=== PATIENT | female | born 1945 | race Caucasian/White ===

== ENCOUNTER 2017-05-20 20:20 | Inpatient (IN) | payer MEDICARE ==
[2017-05-20] MEDS ORDERED: Ondansetron HCl/PF 4 MG/2 ML Vial ONE (23:53)
[2017-05-20] MEDS ORDERED: HYDROcodone/Acetaminophen 10/325 mg Tablet PO PRN (23:54)
[2017-05-20] MEDS ORDERED: HYDROcodone/Acetaminophen 5/325 mg Tablet PO PRN (23:54)
[2017-05-20] MEDS ORDERED: Ondansetron HCl/PF 4 MG/2 ML Vial IVP PRN (23:54)
[2017-05-21] MEDS: Sodium Chloride 0.9% 1,000 ML IV SCH ×3 (01:12→19:14)
[2017-05-21] MEDS: Acetaminophen 325 MG TAB PO PRN ×2 (01:15→05:45)
--- NOTE | 2017-05-21 01:37 | HP ---
CHIEF COMPLAINT: Left flank pain. HISTORY OF PRESENT ILLNESS: The patient is a 71-year-old female, who was transferred from [facility] due to a 2.5 cm left ureteral stone. The patient is still in fairly good amount of pain on her le ft flank. She has had prior kidney stones before. Otherwise, her home situation is such that she is living alone and this is also a mitigating factor in admitting her tonight along with her pain contr ol. The patient does have some nausea, however, no vomiting. No fevers or chills. PAST MEDICAL HISTORY: Significant for hypertension, hypothyroidism, deafness, asthma. PAST SURGICAL HISTORY: Significant for prior hernia repair, cholecystectomy, and tonsillectomy. SOCIAL HISTORY: Negative for tobacco or alcohol use. REVIEW OF SYSTEMS: Please see HPI. Rest of 14-point review of systems is negative. HOME MEDICATIONS: The patient is currently on lisinopril, Flonase, vitamin D3, citalopram, Synthroid , Wellbutrin, Nexium, amlodipine, Symbicort, and lamotrigine. LABORATORY AND X-RAY DATA: The patient is noted to have a 2.5 cm kidney stone on the left side. Lab oratories are not available as they were done at [place] currently, rest are pending. PHYSICAL EXAMINATION: VITAL SIGNS: Blood pressure 100/64, pulse 104, respirations 20. The patient's temperature is 97.8. The patient is saturating 95% on room air. GENERAL: The patient is awake, alert, oriented x3, in no acute distress. HEENT: Pupils equal, round, and reactive to light and accommodation. Extraocular muscles intact. T Ms are clear. No erythema in throat. NECK: No JVD. No lymphadenopathy. HEART: Regular rate and rhythm. LUNGS: Clear to auscultation bilaterally. ABDOMEN: Positive bowel sounds. Soft, nontender. The patient does have left flank pain upon palpat ion. EXTREMITIES: No clubbing, cyanosis, or edema. NEUROLOGIC: Cranial nerves II-XII are grossly intact. She is very hard of hearing. PSYCHIATRIC: The patient has noted depression; however, she is cooperative and answering questions a ppropriately. ASSESSMENT AND PLAN: 1. Left kidney stone. Continue IV fluid rehydration. Continue on pain management. Await for CBC, plus or minus on antibiotics. Urology has been consulted and will see in the morning. 2. Hypertension. Continue as tolerated. For now, we will hold due to a slightly low blood pressure , which may be a factor from her pain management. 3. Hypothyroidism. Continue Synthroid. 4. Depression. Continue Wellbutrin. 5. Asthma, stable. Continue with outpatient regimen. 6. Code status: FULL CODE.
[2017-05-21 03:05] VITALS: BMI 18.3
[2017-05-21 05:21] LABS: #Lymphocytes 1.5 thou/uL (1.20-3.40); #Monocytes 1.7 thou/uL (0.11-0.59); #Neutrophils 14.3 thou/uL (1.40-6.50); %Basophils 0.2 % (0.0-1.0); %Eosinophils 0.3 % (0.0-10.0); %Lymphocytes 8.3 % (21.0-51.0); %Monocytes 9.9 % (0.0-10.0); %Neutrophils 81.4 % (42.0-75.0); Hemoglobin 14.8 g/dL (12.0-16.0); Mean Corpuscular HGB CONC 32.8 g/dL (32.0-36.0); Mean Corpuscular Hemoglobin 31.8 pg (27.0-31.0); Mean Platelet Volume 8.3 fL (7.4-10.4); Platelet Count 257 thou/uL (130-400); RBC Distribution Width 12.2 % (11.5-14.5); Red Blood Cell (RBC) Count 4.64 mill/uL (4.20-5.40); White Blood Cell (WBC) Count 17.5 thou/uL (4.8-10.8)
[2017-05-21] MEDS: Levothyroxine Sodium 125 MCG TAB PO SCH (05:35)
[2017-05-21 05:42] LABS: Anion Gap 14 mmol/L (10-20); BUN (Urea Nitrogen) 25 mg/dL (9.8-20.1); Calc. Creatinine Clearance 31 mL/min (70-130); Carbon Dioxide 26 mmol/L (23-31); Chloride 105 mmol/L (98-107); Estimated GFR-MDRD 35; Glucose 96 mg/dL (83-110); Potassium 4.4 mmol/L (3.5-5.1); Sodium 141 mmol/L (136-145)
[2017-05-21] MEDS: Mometasone/Formoterol 120 PUFF INHALER INH SCH ×2 (06:44→19:45)
[2017-05-21] MEDS ORDERED: Ondansetron ODT 4 MG TAB PO PRN (07:48)
[2017-05-21] MEDS ORDERED: Senokot 8.6 MG TAB PO PRN (07:48)
[2017-05-21] MEDS ORDERED: Diabetic Tussin 200 MG/10 ML UDCUP PO PRN (07:48)
[2017-05-21] MEDS ORDERED: Chloraseptic Spray 180 ml Bottle PO PRN (07:48)
[2017-05-21] MEDS ORDERED: Milk Of Magnesia 30 ML UDCUP PO PRN (07:48)
[2017-05-21] MEDS ORDERED: Sodium Chloride 0.65% Nasal 44 ML BOT EA NARE PRN (07:48)
[2017-05-21] MEDS ORDERED: Loperamide HCl 2 MG CAP PO PRN (07:48)
[2017-05-21] MEDS ORDERED: Mag-Al 1200 mg/1200 mg/30 ML UDCUP PO PRN (07:48)
[2017-05-21] MEDS ORDERED: Eucerin (Mineral Oil/Petrolatum,White) 30 gm Jar TOP PRN (07:48)
[2017-05-21] MEDS ORDERED: Artificial Tear Sol 15 ML BOT EA EYE PRN (07:48)
[2017-05-21] MEDS ORDERED: Loratadine 10 MG TAB PO PRN (07:48)
[2017-05-21] MEDS ORDERED: Temazepam 15 MG CAP PO PRN (07:48)
[2017-05-21] MEDS ORDERED: hydrALAZINE 20 MG/ML VIAL SLOW IVP PRN (07:48)
[2017-05-21] MEDS ORDERED: cefTRIAXone\\ROCEPHIN 1 GM in Sodium Chloride 0.9% 100 ML IVPB SCH (08:00)
[2017-05-21] MEDS: Enoxaparin Sodium 30 MG/0.3 ML SYRINGE SC SCH (08:24)
[2017-05-21] MEDS: Famotidine 20 MG TAB PO SCH (08:24)
[2017-05-21] MEDS: Bupropion 150 MG SR TAB PO SCH (08:24)
[2017-05-21] MEDS ORDERED: Famotidine/PF 20 mg/2ml Vial SLOW IVP SCH (09:00)
[2017-05-21] MEDS ORDERED: Morphine 5 MG/ML SYRINGE SLOW IVP PRN (09:32)
[2017-05-21 09:42] LABS: #Basophils 0.1 thou/uL (0.0-0.2); #Eosinphils 0.1 thou/uL (0.0-0.7); #Monocytes 1.1 thou/uL (0.11-0.59); #Neutrophils 11.7 thou/uL (1.40-6.50); %Basophils 0.4 % (0.0-1.0); %Eosinophils 0.7 % (0.0-10.0); %Lymphocytes 18.6 % (21.0-51.0); %Monocytes 6.7 % (0.0-10.0); %Neutrophils 73.6 % (42.0-75.0); Hemoglobin 15.5 g/dL (12.0-16.0); Mean Corpuscular HGB CONC 32.2 g/dL (32.0-36.0); Mean Corpuscular Hemoglobin 31.3 pg (27.0-31.0); Mean Corpuscular Volume 97.3 fl (81.0-99.0); Mean Platelet Volume 8.2 fL (7.4-10.4); Platelet Count 273 thou/uL (130-400); RBC Distribution Width 12.3 % (11.5-14.5); Red Blood Cell (RBC) Count 4.96 mill/uL (4.20-5.40); White Blood Cell (WBC) Count 15.9 thou/uL (4.8-10.8)
[2017-05-21 09:53] LABS: Anion Gap 13 mmol/L (10-20); BUN (Urea Nitrogen) 28 mg/dL (9.8-20.1); Calc. Creatinine Clearance 31 mL/min (70-130); Calcium 8.9 mg/dL (7.8-10.44); Carbon Dioxide 27 mmol/L (23-31); Chloride 105 mmol/L (98-107); Estimated GFR-MDRD 36; Glucose 118 mg/dL (83-110); Potassium 3.7 mmol/L (3.5-5.1); Sodium 141 mmol/L (136-145)
[2017-05-21] MEDS ORDERED: cefTRIAXone\\ROCEPHIN 1 GM, Syringe 0.4 ML in Sterile Water 9.6 ML SLOW IVP SCH (10:00)
--- NOTE | 2017-05-21 12:28 | PDOC.PN ---
- Subjective Encounter Start Date: 05/21/17 Encounter Start Time: 07:50 -: old records requested/rev pt has left flank pain, no fever, Patient seen and examined. No overnight events - Objective Resuscitation Status: Resuscitation Status FULL:Full Resuscitation MAR Reviewed: Yes Vital Signs & Weight: Vital Signs (12 hours) Temp Pulse Resp BP Pulse Ox 05/21/17 11:26 98.3 F 83 18 107/49 L 95 05/21/17 07:52 97.5 F L 82 16 107/58 L 97 05/21/17 07:40 98.3 F 78 12 05/21/17 06:44 78 12 05/21/17 04:21 97.5 F L 79 22 H 117/58 L 98 05/21/17 03:00 97.9 F 103 H 20 Weight Weight 124 lb 8 oz I&O: 05/20/17 05/21/17 05/22/17 06:59 06:59 06:59 Intake Total 1402 901 Balance 1402 901 Result Diagrams: 05/21/17 09:22 05/21/17 09:23 Radiology Reviewed by me: Yes (CT abdomen) EKG Reviewed by me: Yes (NSR) Phys Exam - Physical Examination Constitutional: NAD HEENT: PERRLA, moist MMs, sclera anicteric Neck: no JVD, supple Respiratory: no wheezing, no rales, no rhonchi Cardiovascular: RRR, no significant murmur, no rub Gastrointestinal: soft, non-tender, no distention, positive bowel sounds left flank tenderness Musculoskeletal: no edema, pulses present Neurological: non-focal, normal sensation, moves all 4 limbs Psychiatric: normal affect, A&O x 3 Skin: no rash, normal turgor Dx/Plan (1) Hydronephrosis, left Code(s): N13.30 - UNSPECIFIED HYDRONEPHROSIS Status: Acute (2) Left flank pain Code(s): R10.9 - UNSPECIFIED ABDOMINAL PAIN Status: Acute (3) UTI (urinary tract infection) Status: Acute (4) Anxiety and depression Code(s): F41.9 - ANXIETY DISORDER, UNSPECIFIED; F32.9 - MAJOR DEPRESSIVE DISORDER, SINGLE EPISODE, UNSPECIFIED Status: Chronic (5) COPD (chronic obstructive pulmonary disease) Status: Chronic Qualifiers: (6) Deafness Code(s): H91.90 - UNSPECIFIED HEARING LOSS, UNSPECIFIED EAR Status: Chronic (7) GERD (gastroesophageal reflux disease) Code(s): K21.9 - GASTRO-ESOPHAGEAL REFLUX DISEASE WITHOUT ESOPHAGITIS Status: Chronic (8) HTN (hypertension) Code(s): I10 - ESSENTIAL (PRIMARY) HYPERTENSION Status: Chronic Qualifiers: (9) Hypothyroidism Code(s): E03.9 - HYPOTHYROIDISM, UNSPECIFIED Status: Chronic Qualifiers: (10) Obesity (BMI 30.0-34.9) Code(s): E66.9 - OBESITY, UNSPECIFIED Status: Chronic - Plan cont current plan of care, continue antibiotics * wbc improving * will add rocephin and levaquin for suspected UTI * urology consulted * pain control * start selected home medication * medication reviewed as below * symptomatic treatment. Review of Systems - Review of Systems Constitutional: negative: fever, chills, sweats, weakness, malaise, other ENT: negative: Ear Pain, Ear Discharge, Nose Pain, Nose Discharge, Nose Congestion, Mouth Pain, Mouth Swelling, Throat Pain, Throat Swelling, Other Respiratory: negative: Cough, Dry, Shortness of Breath, Hemoptysis, SOB with Excertion, Pleuritic Pain, Sputum, Wheezing Cardiovascular: negative: chest pain, palpitations, orthopnea, paroxysmal nocturnal dyspnea, edema, light headedness, other Gastrointestinal: Abdominal Pain. negative: Nausea, Vomiting, Diarrhea, Constipation, Melena, Hematochezia, Other Genitourinary: Dysuria. negative: Frequency, Incontinence, Hematuria, Retention , Other Musculoskeletal: negative: Neck Pain, Shoulder Pain, Arm Pain, Back Pain, Hand Pain, Leg Pain, Foot Pain, Other Skin: negative: Rash, Lesions, David, Bruising, Other - Medications/Allergies Allergies/Adverse Reactions: Allergies Allergy/AdvReac Type Severity Reaction Status Date / Time iodine Allergy Verified 08/04/16 16:53 Medications: Current Medications Acetaminophen (Tylenol) 650 mg PO Q4H PRN PRN Reason: Headache/Fever or Pain Last Admin: 05/21/17 05:45 Dose: 650 mg Hydrocodone Bitart/Acetaminophen ([place] 10/325) 1 tab PO Q4H PRN PRN Reason: Severe Pain (7-10) Hydrocodone Bitart/Acetaminophen ([place] 5/325) 1 tab PO Q4H PRN PRN Reason: Moderate Pain (4-6) Al Hydroxide/Mg Hydroxide (Maalox) 15 ml PO Q4H PRN PRN Reason: Heartburn or Indigestion Artificial Tears (Tears Renewed 15ml Bottle) 0 drop EA EYE PRN PRN PRN Reason: Dry Eyes Bupropion HCl (Wellbutrin Sr) 150 mg PO DAILY [facility] Last Admin: 05/21/17 08:24 Dose: 150 mg Citalopram Hydrobromide (Celexa) 40 mg PO HS [facility] Enoxaparin Sodium (Lovenox) 30 mg SC 0900 [facility] Last Admin: 05/21/17 08:24 Dose: 30 mg Famotidine (Pepcid) 20 mg PO DAILY [facility] Last Admin: 05/21/17 08:24 Dose: 20 mg Guaifenesin (Robitussin Sf) 200 mg PO Q4H PRN PRN Reason: Cough Hydralazine HCl (Apresoline) 10 mg SLOW IVP Q4H PRN PRN Reason: Systolic BP > 180 Sodium Chloride (Normal Saline 0.9%) 1,000 mls @ 125 mls/hr IV .Q8H [facility] Last Admin: 05/21/17 10:14 Dose: 1,000 mls Levofloxacin 500 mg/ Device 100 mls @ 100 mls/hr IVPB Q24HR@0900 [facility] Last Admin: 05/21/17 08:28 Dose: 100 mls Ceftriaxone Sodium 1 gm/ (Syringe 0.4 ml/ Sterile Water) 10 mls @ 120 mls/hr SLOW IVP Q24HR@1000 [facility] Last Admin: 05/21/17 10:15 Dose: 10 mls Levothyroxine Sodium (Synthroid) 125 mcg PO 0600 [facility] Last Admin: 05/21/17 05:35 Dose: 125 mcg Loperamide HCl (Imodium) 2 mg PO PRN PRN PRN Reason: Diarrhea/Loose Stools Last Admin: 05/21/17 10:58 Dose: 2 mg Loratadine (Claritin) 10 mg PO DAILYPRN PRN PRN Reason: Sinus Symptoms Magnesium Hydroxide (Milk Of Magnesium) 30 ml PO DAILYPRN PRN PRN Reason: Constipation Mineral Oil/White Petrolatum (Eucerin Cream) 0 gm TOP BIDPRN PRN PRN Reason: Dry Skin Mometasone Furoate/Formoterol Fumar (Dulera 200 Mcg/5 Mcg Inhaler) 2 puff INH BID-RT [facility] Last Admin: 05/21/17 06:44 Dose: 2 puff Morphine Sulfate (Morphine) 2 mg SLOW IVP Q4H PRN PRN Reason: Breakthrough Pain Last Admin: 05/21/17 10:09 Dose: 2 mg Ondansetron HCl (Zofran) 4 mg IVP Q6H PRN PRN Reason: Nausea/Vomiting Ondansetron HCl (Zofran Odt) 4 mg PO Q6H PRN PRN Reason: Nausea/Vomiting Phenol (Chloraseptic [place] 180 Ml Bot) 0 ml PO PRN PRN PRN Reason: Sore Throat Senna (Senokot) 2 tab PO HSPRN PRN PRN Reason: Constipation Sodium Chloride ([place] Nasal [place] 0.65%) 0 ml EA NARE QIDPRN PRN PRN Reason: Nasal Congestion Temazepam (Restoril) 15 mg PO HSPRN PRN PRN Reason: Insomnia
[2017-05-21] MEDS ORDERED: Lidocaine 1% PF 5 ML VIAL ONE (13:53)
[2017-05-21] MEDS ORDERED: Glycopyrrolate 0.2 MG/ML 5 ML SYRINGE ONE (13:53)
[2017-05-21] MEDS ORDERED: PHENYLEPHRINE-NS 100 MCG/ML 10 ML SYRINGE ONE (13:53)
[2017-05-21] MEDS ORDERED: Propofol 200 MG/20 ML VIAL ONE (13:53)
[2017-05-21] MEDS ORDERED: B & O ONE (15:05)
[2017-05-21] MEDS ORDERED: Iothalamate Meglumine 60% 50 ML VIAL FS ONE (15:05)
[2017-05-21] MEDS ORDERED: Fentanyl 100 MCG/2 ML VIAL ONE (16:01)
[2017-05-21] MEDS ORDERED: Promethazine HCl 25 MG/ML VIAL IM PRN (16:58)
[2017-05-21] MEDS ORDERED: Promethazine HCl 25 MG/ML VIAL SLOW IVP PRN (16:58)
[2017-05-21] MEDS ORDERED: Ondansetron HCl/PF 4 MG/2 ML Vial IVP PRN (16:58)
--- NOTE | 2017-05-21 17:00 | RAD ---
RETROGRADE IVP 05/21/17 COMPARISON: CT abdomen/pelvis 05/20/17. HISTORY: Left urinary collecting system calcification. FINDINGS/IMPRESSION: Multiple limited intraoperative fluoroscopic views of a retrograde IVP were submitted for interpretat ion. There is a calcification projecting over the region of the left renal pelvis. Contrast was admin istered which shows a 1.7 cm filling defect in the left renal pelvis. A double-J ureteral stent is ev entually placed and appears in good position. It appears that the filling defect is still present in this location. POS: MARISSA
[2017-05-21] MEDS ORDERED: Phenazopyridine HCl 97.5 MG TABLET ONE (17:20)
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
[2017-05-21] MEDS ORDERED: Cepastat Lozenges 1 LOZ PO PRN (19:28)
[2017-05-21] MEDS: Phenazopyridine HCl 97.5 MG TABLET PO SCH (21:06)
[2017-05-21] MEDS: Cefprozil 250 MG TAB PO SCH (21:06)
[2017-05-21] MEDS: Citalopram 20 MG TAB PO SCH (21:06)
--- NOTE | 2017-05-21 21:48 | OP ---
DATE OF HOSPITAL ADMISSION: 05/20/2017 DATE OF CONSULTATION REQUEST AND REPORT: 05/21/2017 DATE OF PROCEDURE: 05/21/2017 PREOPERATIVE DIAGNOSES: 1. Left renal calculus greater than 2.5 cm. 2. Left ureteropelvic junction obstruction secondary to calculus. 3. Elevated white count. POSTOPERATIVE DIAGNOSES: 1. Left renal calculus greater than 2.5 cm 2. Left ureteropelvic junction obstruction secondary to calculus. 3. Elevated white count. OPERATIVE PROCEDURES: 1. Left-sided stent placement with cystoscopy, 56392. 2. Left-sided retrograde pyelography, 29813. SURGEON: Alexis Shah M.D. BRIEF HISTORY AND INDICATION FOR PROCEDURE: Ms. Kathryn Benson is a pleasant 71-year-old white female with an approximately 2 year long history of a left-sided kidney stone, which has now pr ogressed to obstructing her left UPJ. Patient developed symptoms of impending sepsis and was admitte d overnight to the hospitalist service for management of multiple medical issues. Patient opted to p roceed to the operating room for cystourethroscopy and left-sided stent placement and did proceed wit h that today. TECHNICAL PROCEDURE: Patient was appropriately identified in the preoperative holding area, informed written consent was obtained. Patient was brought to the operative suite, placed in the supine posi tion on a cysto fluorographic table and general anesthesia was established using LMA airway. Patient was repositioned in the supine lithotomy position and prepped and draped in usual sterile fashion fo r cystoscopic assessment. Fluorographically, the patient was evaluated and patient was noted to have an approximately 2.5 cm left renal calculus located roughly in the location of the ureteropelvic felicita ction. This was not super dense in appearance, but did suggest the presence of a probable calcium co mponent to her stone. The patient underwent cystoscopic evaluation, we noted postmenopausal changes associated with the patient's urethra and some urethral atrophy. Patient's bladder was panendoscopic ally evaluated. There was no efflux observed from the left ureteric orifice. Right ureteric orifice effluxed relatively concentrated appearing urine. Bladder was otherwise free of tumor lesion or abn ormality. We accessed the left ureter using a 0.035 inch Glidewire and a 5 Danish Pollack catheter. We utilized this to advance the Pollack catheter in the patient's renal pelvis and aspirated fluid, which was sent for culture above the patient's obstructing stone. This urine grossly appeared clear consistent with the patient's generalized improvement with hydration and medical therapy today. Ines ent underwent retrograde evaluation, which demonstrated the collecting system, which looked as if it had been distended before. We placed a 4.5 Danish x 28 cm double-J ureteral stent in the patient's l eft collecting system above the level of the calculus and UPJ and achieved good coil. We removed the string from the stent and drained the patient's bladder at the end of the procedure. A 60 mg bellad onna and opioid suppository was applied per rectum at the close of the procedure for management of th e patient's potential bladder spasms postoperatively. ESTIMATED BLOOD LOSS: Less than 5 mL. RESUSCITATION FLUIDS: 200 mL of crystalloid. COMPLICATIONS: None. SPECIMENS: Urine for culture as noted.
[2017-05-22] MEDS: Sodium Chloride 0.9% 1,000 ML IV SCH ×3 (02:23→16:04)
[2017-05-22] MEDS: Levothyroxine Sodium 125 MCG TAB PO SCH (05:49)
[2017-05-22] MEDS: Mometasone/Formoterol 120 PUFF INHALER INH SCH ×2 (07:02→19:12)
[2017-05-22] MEDS: Cefprozil 250 MG TAB PO SCH ×2 (08:56→20:39)
[2017-05-22] MEDS: Enoxaparin Sodium 30 MG/0.3 ML SYRINGE SC SCH (08:56)
[2017-05-22] MEDS: Phenazopyridine HCl 97.5 MG TABLET PO SCH ×3 (08:56→20:38)
[2017-05-22] MEDS: Famotidine 20 MG TAB PO SCH (08:56)
[2017-05-22 08:58] LABS: #Basophils 0.1 thou/uL (0.0-0.2); #Eosinphils 0.2 thou/uL (0.0-0.7); #Lymphocytes 2.1 thou/uL (1.20-3.40); #Monocytes 0.5 thou/uL (0.11-0.59); %Basophils 0.8 % (0.0-1.0); %Eosinophils 1.9 % (0.0-10.0); %Lymphocytes 23.5 % (21.0-51.0); %Monocytes 6.1 % (0.0-10.0); %Neutrophils 67.8 % (42.0-75.0); Hemoglobin 14.4 g/dL (12.0-16.0); Mean Corpuscular HGB CONC 33.2 g/dL (32.0-36.0); Mean Corpuscular Hemoglobin 31.8 pg (27.0-31.0); Mean Corpuscular Volume 95.8 fl (81.0-99.0); Mean Platelet Volume 8.2 fL (7.4-10.4); Platelet Count 209 thou/uL (130-400); RBC Distribution Width 11.9 % (11.5-14.5); Red Blood Cell (RBC) Count 4.53 mill/uL (4.20-5.40); White Blood Cell (WBC) Count 8.9 thou/uL (4.8-10.8)
[2017-05-22 09:36] LABS: ALT (SGPT) 17 U/L (8-55); AST (SGOT) 25 U/L (5-34); Albumin 3.6 g/dL (3.4-4.8); Alkaline Phosphatase 72 U/L (40-150); Anion Gap 10 mmol/L (10-20); BUN (Urea Nitrogen) 13 mg/dL (9.8-20.1); Bilirubin, Total 0.4 mg/dL (0.2-1.2); Calc. Creatinine Clearance 58 mL/min (70-130); Calcium 9.1 mg/dL (7.8-10.44); Carbon Dioxide 26 mmol/L (23-31); Chloride 110 mmol/L (98-107); Estimated GFR-MDRD 73; Globulin 2.5 g/dL (2.4-3.5); Glucose 121 mg/dL (83-110); Protein, Total 6.1 g/dL (6.0-8.3); Sodium 142 mmol/L (136-145)
[2017-05-22] MEDS: Bupropion 150 MG SR TAB PO SCH (09:47)
[2017-05-22] MEDS: TROSPIUM 20 MG TABLET PO SCH ×2 (09:48→20:39)
[2017-05-22] MEDS ORDERED: Ketorolac Tromethamine 30 MG/ML VIAL IVP PRN (10:57)
--- NOTE | 2017-05-22 10:57 | PDOC.PN ---
- Subjective Encounter Start Date: 05/22/17 Encounter Start Time: 08:00 today she is not feeling well, has mild flank pain, has not walked and feels weak, she is not confident to go home today and wanted to stay one more day - Objective MAR Reviewed: Yes Vital Signs & Weight: Vital Signs (12 hours) Temp Pulse Resp BP Pulse Ox 05/22/17 08:00 97.7 F 86 18 173/80 H 97 05/22/17 04:00 98.5 F 92 16 158/76 H 95 05/22/17 00:00 98.4 F 86 18 167/84 H 95 I&O: 05/21/17 05/22/17 05/23/17 06:59 06:59 06:59 Intake Total 1675 Balance 1675 Result Diagrams: 05/22/17 08:39 05/22/17 08:39 Phys Exam - Physical Examination Constitutional: NAD HEENT: PERRLA, moist MMs, sclera anicteric Neck: no JVD, supple Respiratory: no wheezing, no rales, no rhonchi Cardiovascular: RRR, no significant murmur, no rub Gastrointestinal: soft, no distention, positive bowel sounds left flank tenderness Musculoskeletal: no edema, pulses present Neurological: non-focal, normal sensation, moves all 4 limbs Psychiatric: normal affect, A&O x 3 Skin: no rash, normal turgor Dx/Plan (1) Hydronephrosis, left Code(s): N13.30 - UNSPECIFIED HYDRONEPHROSIS Status: Acute Comment: due to UPJ stone (2) Left flank pain Code(s): R10.9 - UNSPECIFIED ABDOMINAL PAIN Status: Acute (3) UTI (urinary tract infection) Status: Acute (4) Anxiety and depression Code(s): F41.9 - ANXIETY DISORDER, UNSPECIFIED; F32.9 - MAJOR DEPRESSIVE DISORDER, SINGLE EPISODE, UNSPECIFIED Status: Chronic (5) COPD (chronic obstructive pulmonary disease) Status: Chronic Qualifiers: (6) Deafness Code(s): H91.90 - UNSPECIFIED HEARING LOSS, UNSPECIFIED EAR Status: Chronic (7) GERD (gastroesophageal reflux disease) Code(s): K21.9 - GASTRO-ESOPHAGEAL REFLUX DISEASE WITHOUT ESOPHAGITIS Status: Chronic (8) HTN (hypertension) Code(s): I10 - ESSENTIAL (PRIMARY) HYPERTENSION Status: Chronic Qualifiers: (9) Hypothyroidism Code(s): E03.9 - HYPOTHYROIDISM, UNSPECIFIED Status: Chronic Qualifiers: (10) Obesity (BMI 30.0-34.9) Code(s): E66.9 - OBESITY, UNSPECIFIED Status: Chronic - Plan cont current plan of care, continue antibiotics * continue oral cefzil * follow culture * wbc and creatinine improved to normal * toradol for pain * start walking program * medication reviewed as below * symptomatic treatment. Review of Systems - Review of Systems Constitutional: weakness. negative: fever, chills, sweats, malaise, other Respiratory: negative: Cough, Dry, Shortness of Breath, Hemoptysis, SOB with Excertion, Pleuritic Pain, Sputum, Wheezing Cardiovascular: negative: chest pain, palpitations, orthopnea, paroxysmal nocturnal dyspnea, edema, light headedness, other Gastrointestinal: Other (left flank pain). negative: Nausea, Vomiting, Abdominal Pain, Diarrhea, Constipation, Melena, Hematochezia Genitourinary: negative: Dysuria, Frequency, Incontinence, Hematuria, Retention , Other Musculoskeletal: negative: Neck Pain, Shoulder Pain, Arm Pain, Back Pain, Hand Pain, Leg Pain, Foot Pain, Other Skin: negative: Rash, Lesions, Davdi, Bruising, Other - Medications/Allergies Allergies/Adverse Reactions: Allergies Allergy/AdvReac Type Severity Reaction Status Date / Time iodine Allergy Verified 08/04/16 16:53 Medications: Current Medications Acetaminophen (Tylenol) 650 mg PO Q4H PRN PRN Reason: Headache/Fever or Pain Last Admin: 05/21/17 05:45 Dose: 650 mg Al Hydroxide/Mg Hydroxide (Maalox) 15 ml PO Q4H PRN PRN Reason: Heartburn or Indigestion Last Admin: 05/22/17 06:57 Dose: 15 ml Artificial Tears (Tears Renewed 15ml Bottle) 0 drop EA EYE PRN PRN PRN Reason: Dry Eyes Bupropion HCl (Wellbutrin Sr) 150 mg PO DAILY [facility] Last Admin: 05/22/17 09:47 Dose: 150 mg Cefprozil (Cefzil) 500 mg PO BID [facility] Last Admin: 05/22/17 08:56 Dose: 500 mg Citalopram Hydrobromide (Celexa) 40 mg PO HS [facility] Last Admin: 05/21/17 21:06 Dose: 40 mg Enoxaparin Sodium (Lovenox) 30 mg SC 0900 [facility] Last Admin: 05/22/17 08:56 Dose: 30 mg Famotidine (Pepcid) 20 mg PO DAILY [facility] Last Admin: 05/22/17 08:56 Dose: 20 mg Hydralazine HCl (Apresoline) 10 mg SLOW IVP Q4H PRN PRN Reason: Systolic BP > 180 Sodium Chloride (Normal Saline 0.9%) 1,000 mls @ 125 mls/hr IV .Q8H [facility] Last Admin: 05/22/17 08:55 Dose: Not Given Levothyroxine Sodium (Synthroid) 125 mcg PO 0600 [facility] Last Admin: 05/22/17 05:49 Dose: 125 mcg Loratadine (Claritin) 10 mg PO DAILYPRN PRN PRN Reason: Sinus Symptoms Magnesium Hydroxide (Milk Of Magnesium) 30 ml PO DAILYPRN PRN PRN Reason: Constipation Mineral Oil/White Petrolatum (Eucerin Cream) 0 gm TOP BIDPRN PRN PRN Reason: Dry Skin Mometasone Furoate/Formoterol Fumar (Dulera 200 Mcg/5 Mcg Inhaler) 2 puff INH BID-RT [facility] Last Admin: 05/22/17 07:02 Dose: Not Given Morphine Sulfate (Morphine) 2 mg SLOW IVP Q4H PRN PRN Reason: Breakthrough Pain Last Admin: 05/21/17 10:09 Dose: 2 mg Phenazopyridine HCl (Azo Standard) 97.5 mg PO TID [facility] Last Admin: 05/22/17 08:56 Dose: 97.5 mg Phenol (Chloraseptic [place] 180 Ml Bot) 0 ml PO PRN PRN PRN Reason: Sore Throat Senna (Senokot) 2 tab PO HSPRN PRN PRN Reason: Constipation Sodium Chloride ([place] Nasal [place] 0.65%) 0 ml EA NARE QIDPRN PRN PRN Reason: Nasal Congestion Temazepam (Restoril) 15 mg PO HSPRN PRN PRN Reason: Insomnia Throat Lozenges (Cepastat Lozenges) 1 igor PO Q4H PRN PRN Reason: THROAT PAIN Last Admin: 05/21/17 19:41 Dose: 1 igor Trospium (Trospium) 20 mg PO BID [facility] Last Admin: 05/22/17 09:48 Dose: 20 mg
[2017-05-22] MEDS: Citalopram 20 MG TAB PO SCH (20:39)
--- NOTE | 2017-05-22 23:46 | PRG ---
DATE OF HOSPITAL ADMISSION: 05/21/2017 DATE OF INTERVAL PROGRESS NOTE: 05/22/2017 REASON FOR HOSPITALIZATION: Left-sided obstructing ureteral calculus. BRIEF HISTORY: Ms. Kathryn Benson is a 71-year-old white female, who presented to the emerg ency department on transfer from the [facility] with left-sided flank pain, wh ich had been present for about 2 years. She was found on CT scanning to have a 2.5 cm left ureterope lvic junction calculus. The patient underwent initial ER evaluation and was admitted to the hospital . We took her to the operating room on 05/21/2017, and she underwent cystoscopy with left-sided sten ting. The patient has done well overnight, but has some ileus-related symptoms secondary to narcotic use and her operation. The patient is reporting some bloating sensation. She reports she is having flatus and bowel movements today, however. PHYSICAL EXAMINATION: VITAL SIGNS: Temperature is 98.4, pulse is 105, respirations 12, O2 saturation is 90%, blood pressur e is 196/73. GENERAL: This is a pleasant, awake, alert, white female, in no distress. HEENT: Extraocular movements are intact. Sclerae are anicteric. Oropharynx is clear. The patient has profound bilateral deafness and can hear if the service station console operator's voice is loud enough. NECK: Supple. LUNGS: Clear to auscultation bilaterally. CARDIOVASCULAR: Regular rate and rhythm. She is borderline tachycardic on exam. ABDOMEN: Distended. Percussion of the abdomen reveals increased resonance in all 4 quadrants. She has moderately hyperactive bowel sounds, however. PELVIC EXAMINATION: Not repeated. BACK EXAMINATION: Costovertebral angle tenderness on the left is no longer present. NEUROLOGIC: Gait was not assessed. Patient was evaluated supine in bed. Does have ability to move all 4 extremities without difficulty. LABORATORY STUDIES: The patient's white count has decreased from 17,500 at hospital admission to 8,9 00 today. Her previous neutrophilia at 81.4% has decreased to 67.8%. The patient's ANC is decreased from 14,300-6000 indicating generalized improvement on her current medication regimen. A urine cult ure from renal pelvis was obtained on 05/21/2017 shows no growth at 12 hours. There were no white ce lls or organisms observed on the microscopic assessment of the recovered urine from the patient's lef t renal pelvis. ASSESSMENT: 1. Left-sided ureteropelvic junction calculus. The patient will probably need to undergo ESWL after cultures are returned. An indwelling stent is in place to manage this upper tract obstruction for n ow. 2. Kidney stone characteristics. The patient would merit a KUB imaging study prior to discharge. FOLLOWUP PLAN: The patient should follow up with my office at the [facility] within 1-2 weeks to schedule outpatient extracorporeal shockwave lithotripsy. Over 35 minutes of consultation and assessment time exclusive of any procedures performed today were provided on this patient on subsequent rounds.
[2017-05-23] MEDS: Sodium Chloride 0.9% 1,000 ML IV SCH ×2 (01:21→08:11)
[2017-05-23] MEDS: Levothyroxine Sodium 125 MCG TAB PO SCH (05:19)
[2017-05-23] MEDS: Mometasone/Formoterol 120 PUFF INHALER INH SCH (08:05)
[2017-05-23] MEDS: TROSPIUM 20 MG TABLET PO SCH (09:12)
[2017-05-23] MEDS: Cefprozil 250 MG TAB PO SCH (09:12)
[2017-05-23] MEDS: Famotidine 20 MG TAB PO SCH (09:12)
[2017-05-23] MEDS: Phenazopyridine HCl 97.5 MG TABLET PO SCH (09:12)
[2017-05-23] MEDS: Bupropion 150 MG SR TAB PO SCH (09:12)
[2017-05-23] MEDS: Enoxaparin Sodium 30 MG/0.3 ML SYRINGE SC SCH (09:13)
--- NOTE | 2017-05-23 11:29 | DIS ---
PRIMARY CARE PHYSICIAN: Dr. Jose G Corcoran DATE OF ADMISSION: 05/21/2017 DATE OF DISCHARGE: 05/23/2017 DISCHARGE DISPOSITION: Home. PRIMARY DISCHARGE DIAGNOSES: 1. Left hydronephrosis. 2. Left flank pain. 3. Urinary tract infection, status post cystoscopy and stent placement. 4. Left-sided retrograde pyelography was performed. 5. Acute kidney failure, improved. SECONDARY DISCHARGE DIAGNOSES: Anxiety and depression, COPD, deafness, gastroesophageal reflux disea se, hypertension, hypothyroidism, obesity. PRIMARY PROCEDURE/OPERATION: Left-sided stent placement with cystoscopy, left-sided retrograde pyelo graphy. RADIOLOGICAL INVESTIGATION: Abdomen and pelvis CT scan showed left hydronephrosis, left urinary zakia ecting system calcification, left renal cyst, left renal pelvis and proximal ureteral calcification 2 .4 cm in dimension. Chest x-ray normal. SIGNIFICANT LABS: WBC 8.9, hemoglobin 14.4, platelet 209, sodium 142, potassium 4.0, BUN 13, creatin ine 0.78, calcium 9.1. Liver function tests normal. DISCHARGE MEDICATIONS: Tylenol #3 one to two tablets q.6 hourly p.r.n. for pain, Cefzil 500 mg p.o. twice daily for 10 days, Synthroid 125 mcg p.o. daily, lisinopril 10 mg p.o. daily. CONTRAINDICATIONS: None. CODE STATUS: FULL CODE. INPATIENT CONSULTANTS: Dr. Alexis Shah was consulted who did cystoscopy. ALLERGIES: IODINE. TEST RESULTS PENDING ON DISCHARGE: None. DISCHARGE PLAN: Post hospital, the patient will follow up with Dr. Shah as instructed for extracorp oreal shockwave lithotripsy. The patient will make appointment with primary care physician. HOSPITAL COURSE: A 71-year-old female who was admitted by Dr. Chirag Escobar. Please see his H&P for f urther details. She was admitted for left flank pain. She was diagnosed with a left proximal ureter al calcification about 2.4 cm in size and subsequently she was experiencing left-sided hydronephrosis . Her urinalysis was suspected for urinary tract infection. She was given Rocephin and Levaquin and subsequently on discharge we changed to Cefzil. [facility]. This patient's pain significantly improved after a cystoscopy and stent placement by Dr. Shah, u rologist. Her leukocytosis improved. She remained afebrile. She was hydrated with IV fluid and her renal failure improved. The patient is currently clinically stable. Dr. Shah is okay with discharging her home and follow u p with him for extracorporeal shockwave lithotripsy. On the day of discharge, the patient is seen and examined at bedside. VITAL SIGNS: Currently, temperature 98.0, pulse 99, respiratory rate 16, saturation 91% on room air, weight 124 pounds, blood pressure 167/68. GENERAL: The patient is currently alert, oriented, no acute distress. HEENT: Head; normocephalic, atraumatic. Eyes; pupils round, reactive to light. Extraocular muscles intact. ENT: Oropharynx within normal limits. Moist mucous membranes. No oral lesions. No phary ngeal erythema, no exudates. NECK: Supple, no JVD, no thyromegaly, no carotid bruit. No jugular venous distention. LUNGS: Clear to auscultation without any rhonchi or rales. CARDIAC: S1, S2 regular without any murmur. ABDOMEN: Soft and benign without any tenderness. EXTREMITIES: No edema. NEUROLOGIC: Nonfocal examination. Overall, the patient is medically stable for discharge today. All new medication prescriptions sent to her pharmacy.
[2017-05-23 12:14] VITALS: BP 159/81; TEMP 98.3
--- NOTE | 2017-05-23 13:16 | RAD ---
SINGLE VIEW OF THE ABDOMEN: HISTORY: Ureteral stone. COMPARISON: CT abdomen and pelvis from 05/20/2017. FINDINGS: A single view of the abdomen shows a nonspecific, nonobstructive bowel gas pattern. There is a large calcification projecting over the medial aspect of the left renal shadow, measuring approximately 2. 1 cm in size. There is a left-sided ureteral stent, which appears in good position. IMPRESSION: 1. Interval placement of ureteral stent. 2. Left nephrolithiasis. POS: [facility]
== END 2017-05-23 12:47 | disposition home or self-care (01) | DRG 694 ==
LOC: ERS 20:20 → 2SW 22:34 → OBSVTOIN 05-21 13:10 → SURG B 05-21 15:33
PROVIDERS: ADMIT Hospitalist; ATTEND Hospitalist
PROC: 0T778DZ Dilation of Left Ureter with Intraluminal Device, Via Natural or Artificial Opening Endoscopic (ICD-10-PCS; principal; 2017-05-21)
PROC: BT1F0ZZ Fluoroscopy of Left Kidney, Ureter and Bladder using High Osmolar Contrast (ICD-10-PCS; 2017-05-21)
DX: N13.2 Hydronephrosis with renal and ureteral calculous obstruction (principal); N17.9 Acute kidney failure, unspecified; J44.9 Chronic obstructive pulmonary disease, unspecified; H90.5 Unspecified sensorineural hearing loss; N39.0 Urinary tract infection, site not specified; E03.9 Hypothyroidism, unspecified; I10 Essential (primary) hypertension; F32.9 Major depressive disorder, single episode, unspecified; F41.9 Anxiety disorder, unspecified; K21.9 Gastro-esophageal reflux disease without esophagitis; Z88.8 Allergy status to other drugs, medicaments and biological substances; Z79.899 Other long term (current) drug therapy
CPT/HCPCS: 36415; 74018; 74420; 80048; 80053; 85025; 87070; 87205; 94664; 94760; 96360; 96361; J2270; A4216; C1758; C1769; J0360; J0696; J1650; J1885; J1956; J2001; J2405; J2704; J3010; Q9961

== ENCOUNTER 2017-08-01 05:59 | Day surgery (SDC) | payer MEDICARE ==
[2017-07-29 10:51] VITALS: BMI 29.0
[2017-08-01] MEDS ORDERED: cefTRIAXone\\ROCEPHIN 2 GM in Sodium Chloride 0.9% 100 ML IVPB SCH (06:30)
[2017-08-01] MEDS ORDERED: Famotidine/PF 20 mg/2ml Vial ONE (06:43)
[2017-08-01] MEDS ORDERED: Fentanyl 100 MCG/2 ML VIAL ONE ×2 (06:43)
[2017-08-01 06:50] LABS: #Basophils 0.1 thou/uL (0.0-0.2); #Eosinphils 0.1 thou/uL (0.0-0.7); #Monocytes 0.7 thou/uL (0.11-0.59); #Neutrophils 5.8 thou/uL (1.40-6.50); %Eosinophils 1.2 % (0.0-10.0); %Lymphocytes 22.8 % (21.0-51.0); %Monocytes 7.8 % (0.0-10.0); %Neutrophils 67.2 % (42.0-75.0); Hemoglobin 14.1 g/dL (12.0-16.0); Mean Corpuscular HGB CONC 34.3 g/dL (32.0-36.0); Mean Corpuscular Hemoglobin 31.7 pg (27.0-31.0); Mean Corpuscular Volume 92.6 fl (81.0-99.0); Mean Platelet Volume 7.6 fL (7.4-10.4); Platelet Count 253 thou/uL (130-400); RBC Distribution Width 11.3 % (11.5-14.5); Red Blood Cell (RBC) Count 4.44 mill/uL (4.20-5.40); White Blood Cell (WBC) Count 8.6 thou/uL (4.8-10.8)
[2017-08-01 07:12] LABS: Anion Gap 11 mmol/L (10-20); BUN (Urea Nitrogen) 8 mg/dL (9.8-20.1); Calc. Creatinine Clearance 91 mL/min (70-130); Calcium 9.5 mg/dL (7.8-10.44); Carbon Dioxide 35 mmol/L (23-31); Chloride 101 mmol/L (98-107); Estimated GFR-MDRD 80; Glucose 118 mg/dL (83-110); Sodium 144 mmol/L (136-145)
--- NOTE | 2017-08-01 07:36 | RAD ---
CHEST PA AND LATERAL: HISTORY: A 71-year-old female for preoperative evaluation. COMPARISON: 08/01/15. FINDINGS: Heart size is within normal limits. The lungs are clear. No confluent pneumonia, overt edema, or pl eural effusion. Left shoulder glenohumeral arthropathy changes. IMPRESSION: No acute intrathoracic disease. POS: [facility]
[2017-08-01 07:53] LABS: Potassium 2.7 mmol/L (3.5-5.1)
[2017-08-01] MEDS ORDERED: Potassium Chloride 20 MEQ TAB PO SCH (08:15)
--- NOTE | 2017-08-07 08:36 | EKG ---
Test Reason : PREOP Blood Pressure : / mmHG Vent. Rate : 084 BPM Atrial Rate : 084 BPM P-R Int : 170 ms QRS Dur : 088 ms QT Int : 400 ms P-R-T Axes : 073 063 048 degrees QTc Int : 472 ms Sinus rhythm with occasional Premature ventricular complexes Minimal voltage criteria for LVH, may be normal variant Borderline ECG When compared with ECG of 01-SEP-2015 19:34, Premature ventricular complexes are now Present Confirmed by GOLD MCMAHAN MD ([id number]) on 08/07/2017 8:36:28 AM Referred By: Joni DESAI Confirmed By:GOLD MCMAHAN MD
== END 2017-08-01 09:00 | disposition home or self-care (01) ==
LOC: SDC 05:59 → SDC/OP 09:00 → SDC 09:00
PROVIDERS: ATTEND Urology
DX: N20.0 Calculus of kidney (principal); Z53.8 Procedure and treatment not carried out for other reasons; Z91.041 Radiographic dye allergy status
CPT/HCPCS: 36415; 71046; 80048; 85025; 93005; 93010; J0131; J0696; J3010; J7050; S0028

== ENCOUNTER 2017-08-12 06:43 | Day surgery (SDC) | payer MEDICARE ==
[2017-08-11 10:05] VITALS: BMI 28.8
[2017-08-12] MEDS ORDERED: cefTRIAXone\\ROCEPHIN 2 GM in Sodium Chloride 0.9% 100 ML IVPB SCH (07:30)
[2017-08-12 07:49] LABS: #Basophils 0.1 thou/uL (0.0-0.2); #Eosinphils 0.1 thou/uL (0.0-0.7); #Lymphocytes 2.9 thou/uL (1.20-3.40); #Monocytes 0.9 thou/uL (0.11-0.59); #Neutrophils 8.4 thou/uL (1.40-6.50); %Basophils 0.8 % (0.0-1.0); %Lymphocytes 23.6 % (21.0-51.0); %Monocytes 7.1 % (0.0-10.0); %Neutrophils 67.6 % (42.0-75.0); Hemoglobin 15.8 g/dL (12.0-16.0); Mean Corpuscular HGB CONC 32.7 g/dL (32.0-36.0); Mean Corpuscular Hemoglobin 31.9 pg (27.0-31.0); Mean Corpuscular Volume 97.5 fl (81.0-99.0); Mean Platelet Volume 7.9 fL (7.4-10.4); Platelet Count 280 thou/uL (130-400); RBC Distribution Width 11.7 % (11.5-14.5); Red Blood Cell (RBC) Count 4.96 mill/uL (4.20-5.40); White Blood Cell (WBC) Count 12.4 thou/uL (4.8-10.8)
[2017-08-12 08:04] LABS: Anion Gap 15 mmol/L (10-20); BUN (Urea Nitrogen) 12 mg/dL (9.8-20.1); Calc. Creatinine Clearance 97 mL/min (70-130); Calcium 9.4 mg/dL (7.8-10.44); Carbon Dioxide 23 mmol/L (23-31); Chloride 106 mmol/L (98-107); Estimated GFR-MDRD 87; Glucose 103 mg/dL (83-110); Potassium 3.4 mmol/L (3.5-5.1); Sodium 141 mmol/L (136-145)
[2017-08-12] MEDS ORDERED: Fentanyl 250 MCG/5 ML VIAL ONE (09:06)
[2017-08-12] MEDS ORDERED: Ondansetron HCl/PF 4 MG/2 ML Vial ONE ×2 (09:06→16:32)
[2017-08-12] MEDS ORDERED: Midazolam HCl 2 mg/2 ml Vial ONE (09:06)
--- NOTE | 2017-08-12 11:46 | DIS ---
DATE OF DISCHARGE: 08/12/2017 ADMISSION DIAGNOSES: 1. Left renal pelvis calculus 2 cm x 1.5 cm M 20.0. 2. Indwelling left-sided stent. 3. Past history of a systemic inflammatory response syndrome presentation with a previous stone obst ruction. PROCEDURE PERFORMED: 1. Left extracorporal shockwave lithotripsy, 13987. SURGEON: Alexis Shah M.D. BRIEF HISTORY AND INDICATION FOR HOSPITALIZATION AND PROCEDURE: Ms. Kathryn Benson is a 71-year-old w akila female with a history of a left renal pelvis UPJ obstruction stone which resulted in a SIRS type presentation and presentation to the [facility] on 05/21/2017. The patie nt underwent a preoperative evaluation on 06/23/2017 with a plan for left-sided extracorporal shock w ave lithotripsy. She was not able to show up for that procedure originally scheduled for 07/01/2017 and was later seen in clinic on 07/20/2017 and scheduled for an operative procedure on 08/01/2017. D ue to scheduling defects with the lithotripsy machine she ultimately had to be rescheduled for this d ate which is 08/12/2017. Briefly, the patient is severely deaf and has communication issues not like ly to answer a phone due to that. She says she has a radiopaque left renal calculus 2 cm x 1.5 cm in the left renal pelvis and has been treated with a long course of Cefzil antibiotics for pyelonephrit is episode. The patient completed her antibiotic medication therapy and presented today for left-subha ed extracorporeal shock wave lithotripsy. She does have an indwelling left-sided stent which was lef t in place. HOSPITAL COURSE: Please see the operative note for the patient's extracorporal shock wave lithotrips y. The patient still has a stent in place at the end of the procedure and will need followup imaging to verify clearance of stone particles before removal of the stent. As stone particles are radiopaq ue we plan on KUB imaging initially to validate appropriate clearance and then proceed to CT scanning if necessary. The patient will present to my office in 2-3 weeks for a followup evaluation and asse ssment of her imaging studies and decision making regarding further treatment of left-sided renal pel vis calculus. DISCHARGE INSTRUCTIONS: The patient will continue using her existing prescriptions for her kidney st one which include Tyrone 5/325 tablets 1-2 tablets every 4 hours as needed for pain, and doxycycline 1 tablet p.o. q.12h. for antibiotic prophylaxis of nonculturable organism. The patient was provided i n the office with a 3 week supply of VESIcare 5 mg p.o. daily, which she will also continue on and we did recommend over the counter Pyridium or AZO for stent discomfort. The patient can buy this at an [facility] pharmacy. Follow up will be in my office as outlined above in 2-3 weeks' time with a KUB films from [facility].
[2017-08-12] MEDS ORDERED: Fentanyl 100 MCG/2 ML VIAL ONE (11:50)
--- NOTE | 2017-08-12 12:09 | OP ---
DATE OF HOSPTIAL ADMISSION: 08/12/2017 DATE OF PROCEDURE: 08/12/2017 DATE OF DISCHARGE: 08/12/2017 PREOPERATIVE DIAGNOSES: 1. Left renal pelvis calculus N20.0. 2. Indwelling left ureteral stent. 3. Past history of systemic inflammatory response syndrome with previous stone obstruction. POST-PROCEDURAL DIAGNOSES: 1. Left renal pelvis calculus N20.0. 2. Indwelling left ureteral stent. 3. Past history of systemic inflammatory response syndrome with previous stone obstruction. OPERATIVE: Left extracorporeal shock wave lithotripsy, 98164. SURGEON: Alexis Shah M.D. CRYPTOLOGIC TECHNICIAN OPERATOR/ANALYST SURGEON: None. BRIEF HISTORY AND INDICATION FOR PROCEDURE: Ms. Kathryn Benson is a 71-year-old white female patient with a history of left renal pelvis UPJ stone. It was present at admission to the [facility] on 05/21/2017. She underwent cystoscopy and stent placement. She did have a SIRS-type pr esentation at that time and there were no culturable organisms isolated. The patient was felt to be appropriately covered on cephalosporin antibiotics and completed the Cefzil course for that. She pre sented to clinic for surgical planning on 07/20/2017, and we have planned the procedure on 08/01/2017 , but she could not have her procedure due to lack of availability of as well equipment and she prese nted today on 08/12/2017 for left extracorporeal shock wave lithotripsy. TECHNICAL PROCEDURE: The patient was appropriately identified in the preoperative holding area and w as transported to the operative suite after confirmation of her consent and was taken to the operatin g room and placed supine on Dornier lithotripter. Received general anesthesia by LMA airway, was pos itioned appropriately, and fluoroscopic guidance was utilized to identify the radiopaque. A 2 x 1.5 cm calculus lodged in the left renal pelvis. An indwelling stent could be seen adjacent to that. Th e patient's stone was then treated with lithotripsy receiving a total of 3000 shocks with a maximum p ower level of 5. Her maximum power level of 5 was achieved after ramping up from lower power levels over the first 500 shocks. The patient achieved good fragmentation with dispersion of the stone frag ments to a much larger diameter than 2 cm. The patient still has residual stone as visualized by the fluorographic assessment. She tolerated the procedure well with no untoward consequences. She was awakened and extubated and transported from the operative suite in good condition. COMPLICATIONS: None. ESTIMATED BLOOD LOSS: None. SPECIMENS RECOVERED: None. Patient transported to postoperative recovery area in good condition.
[2017-08-12] MEDS ORDERED: Dexamethasone 20 MG/5 ML VIAL ONE (16:32)
[2017-08-12] MEDS ORDERED: ePHEDrine/0.9% NaCl/PF SYRINGE 50 mg/10 ml ONE (16:32)
[2017-08-12] MEDS ORDERED: PROPOFOL 200 MG/20 ML VIAL ONE (16:32)
[2017-08-12] MEDS ORDERED: Lidocaine 1% PF 5 ML VIAL ONE (16:32)
== END 2017-08-12 15:22 | disposition home or self-care (01) ==
LOC: SDC 06:43
PROVIDERS: ATTEND Urology
PROC: 0TF4XZZ Fragmentation in Left Kidney Pelvis, External Approach (ICD-10-PCS; principal; 2017-08-12)
DX: N20.0 Calculus of kidney (principal); Z91.041 Radiographic dye allergy status
CPT/HCPCS: 36415; 80048; 85025; J0696; J1100; J2001; J2250; J2405; J2704; J3010; J7050

== ENCOUNTER 2018-11-07 11:24 | Emergency (ER) | payer MEDICARE | END 2018-11-07 14:38 | disposition home or self-care (01) | LOC: ERS 11:24 | DX: N13.2 Hydronephrosis with renal and ureteral calculous obstruction (principal); N39.0 Urinary tract infection, site not specified; E03.9 Hypothyroidism, unspecified; E66.9 Obesity, unspecified; J45.909 Unspecified asthma, uncomplicated; F32.9 Major depressive disorder, single episode, unspecified | CPT/HCPCS: 99284 ==

== ENCOUNTER 2019-11-07 18:32 | Inpatient (IN) | payer MEDICARE, OTHER ==
[2019-11-07 19:25] LABS: Hemoglobin 14.7 g/dL (12.0-16.0); Mean Corpuscular HGB CONC 30.8 g/dL (32.0-36.0); Mean Corpuscular Hemoglobin 28.3 pg (27.0-31.0); Mean Platelet Volume 9.3 fL (7.4-10.4); Platelet Count 390 thou/uL (130-400); RBC Distribution Width 16.4 % (11.5-14.5); Red Blood Cell (RBC) Count 5.18 mill/uL (4.20-5.40); White Blood Cell (WBC) Count 25.9 thou/uL (4.8-10.8)
[2019-11-07 19:51] LABS: ALT (SGPT) 8 U/L (8-55); AST (SGOT) 30 U/L (5-34); Albumin 3.5 g/dL (3.4-4.8); Alkaline Phosphatase 98 U/L (40-110); Anion Gap 19 mmol/L (10-20); BUN (Urea Nitrogen) 14 mg/dL (9.8-20.1); Band 5 % (5-11); Bilirubin, Total 0.5 mg/dL (0.2-1.2); Calc. Creatinine Clearance 0 mL/min (70-130); Calcium 9.3 mg/dL (7.8-10.44); Carbon Dioxide 16 mmol/L (23-31); Chloride 101 mmol/L (98-107); Estimated GFR-MDRD 60; Globulin 4.3 g/dL (2.4-3.5); Glucose 128 mg/dL (83-110); Hypochromia SLIGHT = 6-15 cells (100X) (0-5/hpf); Lymphocytes 5 % (21-51); MDiff Complete? YES; Monocytes 7 % (0-10); Neutrophil 80 % (42-75); Platelet Morphology Comment Appears Adequate; Polychromasia SLIGHT = 2-3 cells (100X) (0-2/hpf); Potassium 4.6 mmol/L (3.5-5.1); Protein, Total 7.8 g/dL (6.0-8.3); Reactive Lymphocytes 3 % (0-10); Sodium 131 mmol/L (136-145); Target Cells SLIGHT = 2-5 cells (100X) (0-1/hpf)
[2019-11-07] MEDS ORDERED: Cefepime 2 GM VIAL ONE (20:08)
[2019-11-07] MEDS ORDERED: Lorazepam 2 MG/ML VIAL ONE ×2 (20:10→22:10)
[2019-11-07] MEDS ORDERED: Vancomycin HCl 1.25 GM in Sodium Chloride 0.9% 250 ML 250 ML IVPB SCH (20:15)
[2019-11-07] MEDS ORDERED: diphenhydrAMINE 50 MG/ML VIAL ONE (20:47)
[2019-11-07] MEDS ORDERED: Haloperidol Lactate 5 MG/ML VIAL ONE (20:47)
--- NOTE | 2019-11-07 21:01 | RAD ---
PORTABLE CHEST: 11/07/19 PROVIDED CLINICAL HISTORY: Altered mental status. FINDINGS: Comparison 05/20/17. The cardiac and mediastinal silhouette is unchanged in appearance. Atherosclerosis is noted involving the aortic arch. There is no focal consolidation, pleural fluid, or pneumothorax apparent. IMPRESSION: No evidence for an acute cardiopulmonary process. POS: [facility]
--- NOTE | 2019-11-07 21:04 | RAD ---
PELVIC RADIOGRAPHS 11/07/19 PROVIDED CLINICAL HISTORY: Fall with evidence for hip fracture. FINDINGS: Comparison 07/11/13. There is no evidence for fracture or other acute osseous abnormality. If there is persistent clinical concern, conservative management and follow-up imaging are advised. The right greater trochanter is incompletely imaged on this examination, limiting evaluation. IMPRESSION: As above. POS: [facility]
[2019-11-07 21:17] LABS: Bilirubin Negative (Negative); Blood, Urine 2+ (Negative); Clarity Turbid (Clear); Glucose, Urine (Dipstick) 30 mg/dL (Negative); Ketone, Urine 20 mg/dL (Negative); Leukocyte Negative Leu/uL (Negative); Nitrite Negative (Negative); Protein, Urine (Dipstick) 300 mg/dL (Neg-Trace); Specific Gravity, Urine 1.019 (1.002-1.036); Squamous Epithelial 0-3 HPF (0-3); Urobilinogen Normal mg/dL (Less than 2)
[2019-11-07 21:23] LABS: Bacteria/HPF 1+ HPF (None Seen)
--- NOTE | 2019-11-07 22:08 | CT ---
CT HEAD WITHOUT IV CONTRAST COMPARISON: 07/05/2016 HISTORY: Found on bathroom floor. Altered mental status. TECHNIQUE: Axial CT imaging at 5 mm intervals from vertex through skull base without contrast FINDINGS: There is a increased density subdural collection along the left calvarial convexity which extends fro m the level of the inferior occipital lobe to near the vertex. Greatest transverse dimension is 7 mm, and this is most compatible with a left subdural hemorrhage. There is sulcal effacement involving the left cerebral hemisphere. There is trace shift of the midline structures to the right measuring 1 to 2 mm. No additional acute parenchymal or extra-axial hemorrhage is identified. There is decreased attenuation in the periventricular white matter which is nonspecific but likely re flective of chronic small vessel ischemic changes. There is mild cerebral volume loss. The ventricular system is normal in size, shape, and position for the degree of sulcal atrophy. No acute cortical infarction is seen. There is a low-density area in the right alyse which is thought to be artifactual as opposed to an infarction. Visualized paranasal sinuses are clear. Osseous structures appear intact. No calvarial fracture is seen. IMPRESSION: 1. Left subdural hemorrhage measuring 7 mm in greatest transverse dimension with sulcal effacement in volving the left cerebral hemisphere and a ratio to the midline structures to the right. 2. Chronic small vessel ischemic changes and cerebral volume loss. 3. The findings discussed with Dr. Driver in the emergency department on 11/07/2019 at 2205 hours.
[2019-11-07] MEDS ORDERED: Acetaminophen 650 MG Suppository ONE (22:20)
[2019-11-07] MEDS ORDERED: Acetaminophen 325 MG Suppository ONE (22:20)
--- NOTE | 2019-11-07 22:25 | CT ---
CT Abdomen Pelvis WO Con 11/07/2019 7:54 PM HISTORY: Injury after a fall. Patient found down in bathroom. Abdominal pain. COMPARISON: 06/09/2019 Technique: Multiple contiguous axial CT images are obtained through the abdomen and pelvis without IV contrast. Coronal reformats are provided. FINDINGS: This examination is limited for the evaluation of solid organs and vascular structures due to the lac k of intravenous contrast. Lower Chest: Motion is present at each lung base. Lung bases otherwise appear clear without pleural f luid. Abdomen: Liver: Multiple hepatic granulomata. Gallbladder: Surgically absent. Pancreas: Grossly normal nonenhanced CT appearance. Spleen: Multiple granulomata. Adrenals: Stable right adrenal nodule measuring 1.2 cm. Left adrenal gland demonstrates a grossly nor mal nonenhanced CT appearance Kidneys: A few approximately 2 mm nonobstructing right renal calculi are again seen. There is a crescentic area of decreased density in a left perinephric location with greatest transver se dimension of approximately 3.6 cm likely related to a perinephric hematoma which does result in mass effect on the renal parenchyma. Subcentimeter too small to characterize hypodense lesion is seen in the midportion left kidney, and there is an approximately 2 to 3 mm nonobstructing inferior pole left renal calculus. The larger renal calculus seen in the renal pelvis on prior study is not se en on this exam likely related to interval treatment. There is a linear area of diminished attenuation extending from the skin surface to the left kidney likely related to prior nephrolithotom y procedure. A small 2.4 cm collection is seen in the posterolateral left perinephric location along this tract but posterior to the level of the presumed left perinephric hematoma. Ureters: No ureteral calculus is seen.. Pelvis: Urinary bladder: within normal limits. Reproductive Organs: Evidence of hysterectomy. Lymph Nodes: No enlarged lymph nodes. Bowel: Evidence of colonic diverticulosis. Loops of small bowel are normal in caliber. Appendix: Not definitely visualized. Peritoneum: No free fluid, free air, or fluid collection. Retroperitoneum: Mild perinephric stranding on the left. Vessels: Vascular calcifications in the abdominal aorta and iliac arteries.. Abdominal Wall: within normal limits. Bones: Degenerative changes in the spine. IMPRESSION: 1. There has been interval development of a left perinephric hematoma, and there is linear low-densit y area suggestive of a tract extending from the skin surface to the inferior pole left kidney with significant interval decrease in size of left renal calculus. These findings are likely related to pr ior nephrolithotomy with resultant left perinephric hematoma which does result in mass effect on the renal parenchyma. 2. Nonobstructing bilateral renal calculi. 3. No ureteral calculi are seen bilaterally, and there is no hydronephrosis. 4. Dense vascular calcifications. 5. Colonic diverticulosis. 6. Above findings discussed Dr. Driver in the emergency department on 11/07/2019 at 2218 hours.
[2019-11-07 22:58] LABS: INR-International Normal Ratio 1.3; PTT 36.8 sec (22.9-36.1); Prothrombin Time 16.6 sec (12.0-14.7)
[2019-11-07] MEDS ORDERED: Dextrose 5% in Water 1,000 ML IV PRN (23:19)
[2019-11-07] MEDS ORDERED: HumaLOG 300 UNITS/3 ML VIAL SC PRN (23:19)
[2019-11-07] MEDS ORDERED: Ondansetron PF 4 MG/2 ML Vial IVP PRN (23:19)
[2019-11-07] MEDS ORDERED: Dextrose 50% Abboject 50 ML SYRINGE SLOW IVP PRN (23:19)
[2019-11-07] MEDS ORDERED: Gabapentin 100 MG CAP PO PRN (23:22)
[2019-11-07] MEDS ORDERED: cefTRIAXone\\ROCEPHIN 2 GM in Sodium Chloride 0.9% 100 ML IVPB SCH (23:30)
[2019-11-07 23:48] LABS: Magnesium 1.9 mg/dL (1.6-2.6); Phosphorus 3.6 mg/dL (2.3-4.7)
[2019-11-08 00:16] LABS: Lactic Acid 1.9 mmol/L (0.5-2.2)
[2019-11-08] MEDS ORDERED: Magnesium 2 GM/50 ML 2 GM in Premix Bag 1 BAG IVPB SCH (00:45)
[2019-11-08] MEDS ORDERED: Haloperidol Lactate 5 MG/ML VIAL ONE (02:08)
[2019-11-08 02:54] LABS: SARS-CoV-2 NAA Rapid Test Not Detected (NotDetected)
[2019-11-08] MEDS: Sodium Chloride 0.9% 1,000 ML IV SCH ×3 (04:27→18:46)
[2019-11-08] MEDS: Acetaminophen 500 MG TAB PO SCH ×2 (04:47→07:31)
--- NOTE | 2019-11-08 05:36 | HP ---
This is Edd Valera PA-C dictating a report for Mir Granados MD. REQUESTING PHYSICIAN: Tino Driver DO. CONSULTING PHYSICIAN: Dr. John. HISTORY OF PRESENT ILLNESS: Ms. Benson is a 74-year-old who resides in [facility]. The patient was found lying down in the bathroom floor, was not clear that the patient fell down or she just sat down on the floor. The patient's baseline mental status is altered. She did not participate in the conversation. History from note and from EMS. Upon arrival in the ED, the patient alert, confused, did not participate in the conversation. Vital signs, the patient has mild fever and tachy. REVIEW OF SYSTEMS: Noncontributory except per HPI. PAST MEDICAL HISTORY: Of note, the patient has left urethral stone, the patient had a surgery in 2018 with left ureteral stent. SOCIAL HISTORY: Unable to obtain. PAST MEDICAL HISTORY: Unable to obtain. ALLERGIES: UNABLE TO OBTAIN. PATIENT UNABLE TO PARTICIPATE IN THE CONVERSATION. CURRENT MEDICATION: Unable to obtain. PHYSICAL EXAMINATION: GENERAL: Currently patient lying in bed, shows no signs of respiratory distress. The patient GCS 13 with E4, V4, M5. The patient voiced some clear words with no meaning. VITAL SIGNS: Heart rate is 131, respiratory rate 20, O2 saturation 99% on 2 L, temperature 100.8 and blood pressure 115/116. HEENT: Atraumatic. No bruising. Nontender to palpation. NECK: Trachea midline. CHEST: Atraumatic, no bruising, no crepitus. LUNGS: Clear bilaterally. HEART: Regular rate and rhythm. Systolic murmur on PMI. ABDOMEN: Soft, nondistended. Mildly tender to palpation. EXTREMITIES: Pulses, positive bilaterally. The patient able to move all 4 extremities. IMAGING DATA: Initial workup. Imaging of brain CT scan shows left subdural hemorrhage. Chest x-ray showed no evidence for acute cardiopulmonary process. Pelvis x-ray showed no evidence of fracture. Abdominal pelvis CT scan shows there is left perinephric hematoma. Nonobstructive bilateral renal calculi. No urethral calculi were seen bilaterally. No hydronephrosis, colonic diverticulosis. LABORATORY DATA: Laboratory show white count 25.9, hemoglobin 14.7. Coagulation, INR 1.3. Chemistry: Sodium 131, potassium 4.6, lactic acid 1.9, glucose 128, creatinine 0.82, phosphorus 3.6, and magnesium 1.9. Urine shows white count 7 to 10 with urine bacteria 1+. ASSESSMENT: 1. Status post unwitnessed fall. 2. Subdural hematoma. 3. Bilateral renal stones. 4. Left ureteral stent. 5. Diverticulosis. 6. Urinary tract infection. PLAN: 1. The patient will be admitted to [facility]. 2. Initiate IV antibiotic for possibly UTI or diverticulitis. 3. The patient will have panculture. We will recheck a CBC tomorrow. 4. We will correct electrolytes. 5. IV fluids. 6. Dr. Granados is notified. 7. Neurosurgery wants to repeat the brain CT scan tomorrow. Job ID: [id number]
[2019-11-08] MEDS ORDERED: Piperacillin/Tazobactam 3.375 GM in Sodium Chloride 0.9% 100 ML IVPB SCH (06:00)
[2019-11-08 06:20] LABS: Anion Gap 17 mmol/L (10-20); BUN (Urea Nitrogen) 13 mg/dL (9.8-20.1); Calc. Creatinine Clearance 82 mL/min (70-130); Calcium 8.7 mg/dL (7.8-10.44); Carbon Dioxide 22 mmol/L (23-31); Chloride 102 mmol/L (98-107); Estimated GFR-MDRD 77; Glucose 92 mg/dL (83-110); Potassium 3.5 mmol/L (3.5-5.1); Sodium 137 mmol/L (136-145)
[2019-11-08] MEDS ORDERED: Acetaminophen 650 MG Suppository PR PRN (06:23)
[2019-11-08] MEDS: Levothyroxine Sodium 88 MCG TAB PO SCH (06:25)
[2019-11-08 06:26] LABS: Hemoglobin 13.3 g/dL (12.0-16.0); Mean Corpuscular HGB CONC 30.9 g/dL (32.0-36.0); Mean Corpuscular Hemoglobin 27.6 pg (27.0-31.0); Mean Corpuscular Volume 89.3 fL (78.0-98.0); Mean Platelet Volume 8.4 fL (7.4-10.4); Platelet Count 394 thou/uL (130-400); RBC Distribution Width 15.8 % (11.5-14.5); Red Blood Cell (RBC) Count 4.83 mill/uL (4.20-5.40); White Blood Cell (WBC) Count 32.3 thou/uL (4.8-10.8)
[2019-11-08 06:28] LABS: Lymphocytes 9 % (21-51); MDiff Complete? YES; Monocytes 19 % (0-10); Neutrophil 72 % (42-75); Platelet Morphology Comment Appears Adequate; RBC Morphology Normal
[2019-11-08] MEDS ORDERED: Potassium Phosphate 15 MMOL in Sodium Chloride 0.9% 250 ML 250 ML IVPB SCH (06:45)
--- NOTE | 2019-11-08 07:57 | CT ---
PRELIMINARY REPORT/[facility]/EMERGENCY AFTER HOURS PROCEDURE: EXAM: CT Head Without Intravenous Contrast. CLINICAL HISTORY: F/U [facility]. SUDDEN BP AND HEART RATE DROP. TECHNIQUE: Axial computed tomography images of the head/brain without intravenous contrast. COMPARISON: CT\MI\SR - CT BRAIN WO CON - 11/07/2019 09:38 PM CDT FINDINGS: BRAIN: Hyperdense extra-axial fluid collection overlying the left cerebral convexity measuring approximately 7 mm in greatest thickness, axial image 19, with minimal left to right midline shift. No mass lesio n. No CT evidence for acute territorial infarct. Mild periventricular and subcortical white matter h ypodensities. Previously described right alyse hypodensity is again seen. VENTRICLES: No hydrocephalus. ORBITS: Postsurgical appearance of the right lens. No acute finding. SINUSES AND MASTOIDS: Oval-shaped partially calcified lesion in the left frontal sinus may represent chronic mucocele. The paranasal sinuses and mastoid air cells are otherwise clear. SOFT TISSUES: No significant facial or scalp soft tissue swelling evident. No radiopaque foreign body is seen. BONES: No acute skull fracture. IMPRESSION: 1. Left cerebral convexity evolving hyperdense subdural hemorrhage with minimal left to right midlin e shift not significantly changed from 11/07/2019 exam. 2. No ventriculomegaly or new acute finding. 3. Previously identified hypodensity in the right alyse is again seen. 4. Likely left frontal sinus partially calcified mucocele. ELECTRONICALLY SIGNED BY: Christopher Dorantes DO Nov 08, 2019 3:36:01 AM CDT This report is intended for review by the ordering physician only, in accordance of law. If you recei ve this report in error, please call [facility] at [phone]. FINAL REPORT EMERGENCY AFTER HOURS CT BRAIN WITHOUT CONTRAST: COMPARISON: 11/07/2019. FINDINGS/IMPRESSION: I agree with the findings and impression given in the preliminary report per [facility] physici an. Stable left frontal and parietal convexity subdural hematoma. POS: EAA
[2019-11-08] MEDS: Senokot S 8.6-50 MG TAB PO SCH ×2 (08:10→21:43)
[2019-11-08] MEDS: Polyethylene Glycol 3350 17 GM Packet PO SCH (08:10)
[2019-11-08] MEDS ORDERED: Haloperidol Lactate 5 MG/ML VIAL SLOW IVP SCH ×2 (10:00→15:15)
[2019-11-08] MEDS ORDERED: VANCOMYCIN IVPB PRN (11:05)
--- NOTE | 2019-11-08 11:33 | PRG ---
DATE OF SERVICE: 11/08/2019 This is a 30-minute initial visit note, in which 30 minutes were spent reviewing the imaging record, evaluation, examination, patient formulation of plan. Greater than 50% time was spent in counseling on Kathryn Benson. Ms. Benson is a 74-year-old woman, who was found down on her bathroom floor, altered mental status was noted. She came in with a white blood cell count where she came in febrile. She was noted to have a GCS of 13. She had leukocytosis at 25.9. This has increased to 32.3 overnight with a neutrophil shift. She is also hyponatremic, but this is corrected. She has urinary tract infection. Head CT done yesterday demonstrates a left convexity acute subdural hematoma, approximately 7 mm in size with approximately shift of [address] this morning demonstrates largely stability in the subdural hematoma. On exam, she has her eyes open. She is nonconversant or even nonverbal. She moves all extremities spontaneously. She is febrile and given her white blood cell count and her fever, I suspect she is septic and that is the cause of her altered mental status, perhaps her closed head injury is a second. I would continue to follow along and would recommend no neurosurgical intervention. Job ID: [id number]
[2019-11-08] MEDS: Cefepime 2 GM in Sodium Chloride 0.9% 100 ML IVPB SCH (12:02)
[2019-11-08] MEDS: Famotidine/PF 20 mg/2ml Vial SLOW IVP SCH ×2 (12:02→21:33)
--- NOTE | 2019-11-08 14:56 | PQF ---
Dear Dr. John Date 11/08/19 Please exercise your independent, professional judgment in responding to the clarification form. Clinical indicators are provided on the bottom of this form for your review. Please check appropriate box(es): [ ] Cerebral edema / Vasogenic edema [ ] Compression of brain Due to: [ ] Intracranial tumor [ ] Intracranial hematoma [ ] Acute cerebral infarction [ ] Traumatic brain injury [ ] Obstructive hydrocephalus [ ] Other diagnosis [ ] Unable to determine In addition, please specify: Present on Admission (POA): [ ] Yes [ ] No [ ] Unable to determine For continuity of documentation, please document condition throughout progress notes and discharge summary. Thank You. BRAIN CT 11/07: "HYPERDENSE EXTRA-AXIAL FLUID COLLECTION OVERLYING THE LEFT CEREBRAL CONVEXITY MEASURING APPROXIMATELY 7MM IN GREATEST THICKNESS, AXIAL IMAGE 19, WITH MINIMAL LEFT TO RIGHT MIDLINE SHIFT." RISKS: CLOSED HEAD INJURY (PN 11/07) ALTERED MENTAL STATUS (PN 11/07) TREATMENT: NEUROSURGERY CONSULT NEURO CHECKS Q 2 HOURS Sridevi Gilbert RN [phone] 11/08/19 JESUS
--- NOTE | 2019-11-08 15:26 | PRG ---
DATE OF SERVICE: 11/08/2019 SUBJECTIVE: Ms. Benson is a 74-year-old woman with history of senile dementia, Alzheimer's type. The patient was admitted yesterday following a ground-level fall. The fall was unwitnessed. She was found lying on the ground. Her mental status was altered from her baseline. The patient was evaluated yesterday with a CT scan of the brain, which revealed a 7 mm left convexity subdural hematoma with minimum hqnr-nt-vudyn midline shift. Incidentally, she was also found with urinary tract infection, for which antibiotics were initiated yesterday. Repeat CT scan of the brain today reveals stable left convexity subdural hematoma. The patient remains aphasic. She moves all extremities and occasionally follows commands. Her urinary output has been adequate for the patient's age and weight. OBJECTIVE: VITAL SIGNS: This morning include blood pressure 128/92, pulse is 97 and irregular, respiratory rate is 22, temperature is 102.4 degrees Fahrenheit. HEENT: Reveals pupils equal, round, and reactive to light bilaterally. HEART: Reveals irregular rate and irregular rhythm. LUNGS: Clear to auscultation bilaterally. Her breathing is regular and unlabored. ABDOMEN: Soft, nontender, and nondistended. NEUROLOGIC: Javed Coma Scale is E3V2M6. LABORATORY FINDINGS: Today include a CBC with 32,300 white blood cells, hemoglobin and hematocrit 13.3 and 43.1 respectively. Platelet count is 294,000. Metabolic profile; sodium 137, potassium is 3.5, chloride is 102, bicarb is 22, BUN is 13, creatinine is 0.74, glucose is 92. Urinalysis reveals microscopic hematuria and microscopic bacteriuria. Cultures pending at time of this dictation. COVID-19 test is negative. I have reviewed all radiographic images including [address] scans, which reveal stable left convexity subdural hematoma with minimum yqis-yx-[id number] midline shift. CT scan of the abdomen and pelvis also reveals a left perinephric hematoma with a linear tract extending to the skin. Also noted bilateral nonobstructing renal calculi. IMPRESSION: 1. Post injury day #1, status post ground-level fall. 2. Left convexity subdural hematoma with minimum [id number]-cb-gpcup midline shift. 3. Leukocytosis, likely secondary to urosepsis. 4. Left perinephric hematoma. 5. Acute hypokalemia. PLAN: 1. Correct abnormal electrolytes. 2. Initiate physical and occupational therapy. 3. We will ask Speech and Language pathologist to evaluate the patient for cognition, speech and swallow function. 4. Continue with nonpharmacological VTE prophylaxis. 5. Continue with broad-spectrum antibiotic therapy pending return of all septic workups. Job ID: [id number]
[2019-11-08] MEDS ORDERED: predniSONE 50 MG TAB PO SCH (20:00)
[2019-11-08] MEDS: Vancomycin 1.5 GRAM/300 ML BAG 1.5 GM in Premix Bag 1 BAG IVPB SCH (21:29)
[2019-11-08] MEDS ORDERED: methylPREDNISolone Sod Succ 40 MG VIAL IVP SCH (22:00)
[2019-11-09] MEDS: Cefepime 2 GM in Sodium Chloride 0.9% 100 ML IVPB SCH ×2 (00:11→13:07)
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
[2019-11-09] MEDS: Sodium Chloride 0.9% 1,000 ML IV SCH (01:20)
[2019-11-09] MEDS: Dextrose 5% in Water 1,000 ML IV SCH ×2 (02:55→16:00)
[2019-11-09 03:19] LABS: #Monocytes 0.3 thou/uL (0.11-0.59); #Neutrophils 18.8 thou/uL (1.40-6.50); %Basophils 0.2 % (0.0-1.0); %Eosinophils 0.1 % (0.0-10.0); %Lymphocytes 4.7 % (21.0-51.0); %Monocytes 1.5 % (0.0-10.0); %Neutrophils 93.4 % (42.0-75.0); Hemoglobin 11.4 g/dL (12.0-16.0); Mean Corpuscular Hemoglobin 28.6 pg (27.0-31.0); Mean Corpuscular Volume 89.4 fL (78.0-98.0); Mean Platelet Volume 8.6 fL (7.4-10.4); Platelet Count 377 thou/uL (130-400); RBC Distribution Width 15.6 % (11.5-14.5); White Blood Cell (WBC) Count 20.1 thou/uL (4.8-10.8)
[2019-11-09 03:21] LABS: INR-International Normal Ratio 1.5; Prothrombin Time 17.7 sec (12.0-14.7)
[2019-11-09 03:22] LABS: PTT 32.3 sec (22.9-36.1)
[2019-11-09] MEDS: methylPREDNISolone Sod Succ 40 MG VIAL IVP SCH ×2 (04:30→10:04)
[2019-11-09] MEDS: Levothyroxine Sodium 88 MCG TAB PO SCH (05:26)
[2019-11-09] MEDS ORDERED: diphenhydrAMINE 50 MG CAP PO SCH (08:00)
[2019-11-09] MEDS: Famotidine/PF 20 mg/2ml Vial SLOW IVP SCH (10:02)
[2019-11-09] MEDS: Polyethylene Glycol 3350 17 GM Packet PO SCH (10:04)
[2019-11-09] MEDS: Senokot S 8.6-50 MG TAB PO SCH ×2 (10:05→22:15)
[2019-11-09] MEDS ORDERED: diphenhydrAMINE 50 MG/ML VIAL IVP SCH (10:30)
[2019-11-09] MEDS ORDERED: Sodium Bicarbonate 2.5 MEQ/5 ML VIAL ONE (11:45)
[2019-11-09] MEDS ORDERED: Fentanyl 100 MCG/2 ML VIAL ONE (11:46)
[2019-11-09] MEDS ORDERED: Midazolam HCl 2 mg/2 ml Vial ONE (11:46)
--- NOTE | 2019-11-09 13:08 | CT ---
CT-guided left perinephric fluid collection aspiration HISTORY: Perinephric hematoma/abscess. FINDINGS: After obtaining informed consent, limited CT imaging of the abdomen was performed after adm inistration of IV contrast. The fluid collection at the posterior aspect of the left kidney appears subcapsular. It is 8.2 cm x 4.1 cm greatest diameters on the axial images. It is of homogeneous densi ty averaging 26 Hounsfield units. The wall is thin. No adjacent fat stranding. Sterile technique, buffered local anesthesia, CT guidance, and a lateral approach were used to carefu lly advance a 17-gauge trocar needle into the perinephric fluid collection. Vigorous aspiration, including repositioning of the needle, yielded 10 cc of thick clotted blood. Add itional fluid was unable to be aspirated. Needle was removed. No evidence of complication. IMPRESSION : Technically successful CT-guided aspiration of left perinephric fluid collection. Only a small amount of thick clotted blood was unable to be aspirated. It was sent to laboratory for analysis. Thickness of the clot precluded additional aspiration.
[2019-11-09 13:30] LABS: BF Color Red; Body Fluid Source Abscess Fluid; Clarity Cloudy/Turbid (Clear); Tube # EDTA
[2019-11-09 14:07] VITALS: BMI 25.1
--- NOTE | 2019-11-09 14:39 | PQF ---
CLINICAL DOCUMENTATION CLARIFICATION FORM: Dear Dr. John Date 11/13/19 Please exercise your independent, professional judgment in responding to the clarification form. Clinical indicators are provided on the bottom of this form for your review. Please check appropriate box(es): [ ] Cerebral edema / Vasogenic edema [ ] Compression of brain Due to: [ ] Intracranial tumor [ ] Intracranial hematoma [ ] Acute cerebral infarction [ ] Traumatic brain injury [ ] Obstructive hydrocephalus [ ] Other diagnosis [ ] Unable to determine In addition, please specify: Present on Admission (POA): [ ] Yes [ ] No [ ] Unable to determine For continuity of documentation, please document condition throughout progress notes and discharge summary. Thank You. BRAIN CT 11/07: "HYPERDENSE EXTRA-AXIAL FLUID COLLECTION OVERLYING THE LEFT CEREBRAL CONVEXITY MEASURING APPROXIMATELY 7MM IN GREATEST THICKNESS, AXIAL IMAGE 19, WITH MINIMAL LEFT TO RIGHT MIDLINE SHIFT." RISKS: CLOSED HEAD INJURY (PN 11/07) ALTERED MENTAL STATUS (PN 11/07) TREATMENT: NEROSURGERY CONSULT NEURO CHECKS Q 2 HOURS CDS/Personal Computer Network Analyst Signature: Sridevi Gilbert RN Phone #[phone] This is a permanent part of the Medical Record [facility]
--- NOTE | 2019-11-09 14:45 | CT ---
CT abdomen and pelvis without and with IV contrast HISTORY: Perinephric fluid collections/abscess. COMPARISON: Noncontrast CT 11/07/2019. FINDINGS: Nonobstructing bilateral renal calculi are again demonstrated. The subcapsular fluid collec tion along the posterolateral aspect of the left kidney now measures up to 6.5 cm length by 4.1 cm depth by 8.1 cm with. It shows a thin peripheral enhancing region. Venous internal density averaging 28 Hounsfield units without enhancement. Minimal stranding in the adjacent fat. It results in some compression of the convexity of the left kidney. Atherosclerosis. Scattered calcified granulomata, diverticulosis, and other findings are stable. IMPRESSION : Nonenhancing, noninflamed appearing slightly hyperdense left perinephric fluid collection now better delineated. It has the appearance of a partially clotted hematoma. CT guided aspiration is pending.
--- NOTE | 2019-11-09 17:55 | PRG ---
DATE OF SERVICE: 11/09/2019 SUBJECTIVE: The patient remains in the IMCU. She was admitted status post ground level fall, in which she sustained a subdural hematoma. She was also noted to have an elevated white blood cell count with suspicion for urosepsis. The patient's head CT has remained stable. She is afebrile and her initial cultures have shown no growth for the first 48 hours. We are awaiting evaluation by Dr. Shah of Urology to assess previous stent placed and percutaneous kidney stone removal. There were no issues reported overnight. The patient is less agitated especially now that the nurse has removed her restraints. PHYSICAL EXAMINATION: VITAL SIGNS: Temperature is 98.5, heart rate 80, blood pressure 131/65, respirations 24, oxygen saturation 100% on room air. GENERAL: The patient is resting in bed. She is awake. Her eyes do follow me and she does appear to be somewhat trying to converse, though most of her conversation does not make any sense. RESPIRATIONS: Nonlabored. Her breath sounds are clear bilaterally. HEART: Irregularly irregular rate and rhythm. ABDOMEN: Soft, nondistended. NEUROLOGIC: [place] Coma Scale remains 12 at E4, V2, M6. LABORATORY FINDINGS: White blood cell count 20.1, hemoglobin 11.4, hematocrit 35.7, platelets 377. RADIOGRAPHS: There are no radiographs to review this morning. ASSESSMENT: 1. Status post ground level fall hospital day 2. 2. Left convexity subdural hematoma with minimal left to right midline shift, stable. 3. Leukocytosis, improving. 4. Left perinephric hematoma. PLAN: Plan will be to encourage physical and occupational therapy. We will await evaluation by Urology. We will continue antibiotics awaiting final culture results. We will continue to follow her labs. Job ID: [id number]
[2019-11-10] MEDS: Vancomycin 1.5 GRAM/300 ML BAG 1.5 GM in Premix Bag 1 BAG IVPB SCH (00:33)
[2019-11-10] MEDS: Famotidine/PF 20 mg/2ml Vial SLOW IVP SCH ×3 (00:33→20:13)
[2019-11-10] MEDS: Cefepime 2 GM in Sodium Chloride 0.9% 100 ML IVPB SCH ×2 (00:34→13:18)
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
--- NOTE | 2019-11-10 02:15 | PRG ---
DATE OF SERVICE: 11/09/2019 SUBJECTIVE: Ms. Benson remains in IMCU. The patient is status post ground level fall. She sustained subdural hematoma, has been stable. She also suffers from leukocytosis, improved with left perinephric hematoma, status post drainage. The patient's mental status got better today. Currently, she is awake and alert. She is able to eat by herself. yesterday. Her vital signs have been stable. Her urine is adequate. OBJECTIVE: GENERAL: Currently, patient lying in bed comfortable with no acute respiratory distress. VITAL SIGNS: Stable. LUNGS: Clear bilaterally. HEART: Regular rate and rhythm. ABDOMEN: Soft, nondistended. EXTREMITIES: Neurovascularly intact x4. NEUROLOGY: GCS 14, -1 due to confusion. ASSESSMENT: 1. Status post ground level fall. 2. Left subdural hematoma, stable. 3. Leukocytosis, improved. 4. Left perinephric hematoma, status post drainage. PLAN: 1. Continue supportive care. 2. Continue pain control. 3. Continue nonpharmacological DVT prophylaxis. 4. We will discontinue Epps today. 5. Anticipate transfer to floor tomorrow. Job ID: [id number]
[2019-11-10] MEDS: Levothyroxine Sodium 88 MCG TAB PO SCH (07:14)
[2019-11-10] MEDS: Dextrose 5% in Water 1,000 ML IV SCH ×2 (07:15→17:32)
[2019-11-10] MEDS: Polyethylene Glycol 3350 17 GM Packet PO SCH (08:35)
[2019-11-10] MEDS: Senokot S 8.6-50 MG TAB PO SCH ×2 (08:35→20:13)
[2019-11-10 13:36] LABS: #Basophils 0.1 thou/uL (0.0-0.2); #Lymphocytes 2.4 thou/uL (1.20-3.40); #Monocytes 2.2 thou/uL (0.11-0.59); #Neutrophils 20.9 thou/uL (1.40-6.50); %Basophils 0.2 % (0.0-1.0); %Eosinophils 0.1 % (0.0-10.0); %Lymphocytes 9.4 % (21.0-51.0); %Monocytes 8.5 % (0.0-10.0); %Neutrophils 81.8 % (42.0-75.0); Hemoglobin 12.6 g/dL (12.0-16.0); Mean Corpuscular Hemoglobin 27.9 pg (27.0-31.0); Platelet Count 458 thou/uL (130-400); RBC Distribution Width 15.7 % (11.5-14.5); Red Blood Cell (RBC) Count 4.51 mill/uL (4.20-5.40); White Blood Cell (WBC) Count 25.6 thou/uL (4.8-10.8)
[2019-11-10 13:56] LABS: Anion Gap 14 mmol/L (10-20); BUN (Urea Nitrogen) 23 mg/dL (9.8-20.1); Calc. Creatinine Clearance 79 mL/min (70-130); Calcium 9.3 mg/dL (7.8-10.44); Carbon Dioxide 25 mmol/L (23-31); Chloride 103 mmol/L (98-107); Estimated GFR-MDRD 75; Glucose 104 mg/dL (83-110); Magnesium 1.7 mg/dL (1.6-2.6); Phosphorus 2.1 mg/dL (2.3-4.7); Potassium 3.3 mmol/L (3.5-5.1); Sodium 139 mmol/L (136-145)
[2019-11-10] MEDS: Acetaminophen 325 MG TAB PO PRN (15:18)
[2019-11-10] MEDS ORDERED: Potassium Phosphate 30 MMOL in Sodium Chloride 0.9% 250 ML 250 ML IVPB SCH ×2 (17:30→19:00)
[2019-11-10] MEDS ORDERED: Magnesium 2 GM/50 ML 2 GM in Premix Bag 1 BAG IVPB SCH (17:30)
--- NOTE | 2019-11-10 18:20 | PRG ---
DATE OF SERVICE: 11/10/2019 SUBJECTIVE: The patient remains on the IMCU. She was admitted status post a ground level fall, in which she sustained subdural hematoma. It was also noted that she had elevated white count that upon further review, most specifically by Dr. Shah. It was noted that the patient has had a chronic leukocytosis for the past two years. Her cultures during this admission were unremarkable with no growth to include CT-guided aspiration of a perinephric hematoma. The patient has been afebrile. It is felt that this may represent for hematological reasons that may need to be evaluated. In light of this, the patient has significant dementia, would not likely be a good candidate for cancer treatments. There is no family listed on her point of contact, but we will make this noted on her discharge summary for her primary care provider. Attempts were made today to return her to her facility, but they had concerns that she had required since being here in the time since both of those and that she was still on the IMCU. It is understandable though she was greater than 24 hours from restraints or requiring sedatives. OBJECTIVE: VITAL SIGNS: Temperature 97.5, heart rate 92, blood pressure 120/72, respirations 15, oxygen saturation is 96% on room air. GENERAL: The patient is resting comfortably in bed. She is awake, appears to be at her baseline. She has some expressive aphasia, but can verbalize partially, though at times she has random words. She will follow simple commands. She has been working with physical and occupational therapy. Lungs are clear bilaterally. Her heart is irregularly irregular consistent with her atrial fibrillation. LABORATORY FINDINGS: White blood cell count 25.6, hemoglobin 12.6, hematocrit 40.6, platelets 458. Sodium 139, potassium 3.3, chloride 103 CO2 of 25, BUN 23, creatinine 0.75, glucose 104, magnesium 1.7 phosphorus 2.1 there are no. RADIOGRAPHS: No radiographs to review this morning. ASSESSMENT/PLAN: 1. Status post ground level fall. 2. Left subdural hematoma, stable. 3. Leukocytosis, chronic, stable. 4. Left perinephric hematoma, status post CT-guided aspiration. PLAN: Plan will be to continue supportive care. Encourage physical and occupational therapy and likely return to her facility tomorrow. Job ID: [id number]
--- NOTE | 2019-11-11 00:03 | PDOC.BPN ---
- Brief Progress Note DATE OF SERVICE: 11/10/2019 SUBJECTIVE: Ms. Benson remain surgical , she was transfered from [facility] this morning . The patient is status post ground level fall. She sustained subdural hematoma, has been stable. She also suffers from leukocytosis, improved with left perinephric hematoma, status post drainage. The patient's mental status got better today. Currently, she is awake and alert. She is able to eat by herself. . Her vital signs have been stable. Her urine is adequate. OBJECTIVE: GENERAL: Currently, patient lying in bed comfortable with no acute respiratory distress. VITAL SIGNS: Stable. LUNGS: Clear bilaterally. HEART: Regular rate and rhythm. ABDOMEN: Soft, nondistended. EXTREMITIES: Neurovascularly intact x4. NEUROLOGY: GCS 14, -1 due to confusion. ASSESSMENT: 1. Status post ground level fall. 2. Left subdural hematoma, stable. 3. Leukocytosis, improved. 4. Left perinephric hematoma, status post drainage. PLAN: 1. Continue supportive care. 2. Continue pain control. 3. Continue nonpharmacological DVT prophylaxis. 4. We will discontinue Epps today. 5. Anticipate transfer back to her long term tomorrow
[2019-11-11] MEDS: Levothyroxine Sodium 88 MCG TAB PO SCH (07:21)
[2019-11-11] MEDS: Famotidine/PF 20 mg/2ml Vial SLOW IVP SCH (09:14)
[2019-11-11] MEDS: Polyethylene Glycol 3350 17 GM Packet PO SCH ×2 (09:15→09:18)
[2019-11-11] MEDS: Senokot S 8.6-50 MG TAB PO SCH (09:15)
[2019-11-11] MEDS: Dextrose 5% in Water 1,000 ML IV SCH (09:22)
[2019-11-11] MEDS: Acetaminophen 325 MG TAB PO PRN (09:30)
[2019-11-11 11:17] VITALS: BP 177/88; TEMP 98.5
--- NOTE | 2019-11-12 02:22 | PQF ---
CLINICAL DOCUMENTATION CLARIFICATION FORM: Dear : Jean Reese Date / Time: 11/12/19 4769 Please exercise your independent, professional judgment in responding to the clarification form. Clinical indicators are provided on the bottom of this form for your review Please check appropriate box(es) to clarify if the following diagnosis has been ruled in our ruled out: Sepsis [ ] Ruled in diagnosis [ ] Continue to treat [ ] Resolved [ X ] Ruled out diagnosis [ ] Improving [ ] Cannot rule out diagnosis [ ] Other diagnosis [ ] Unable to determine Physician Signature: Date/Time: For continuity of documentation, please document condition throughout progress notes and discharge summary. Thank You. To be completed by CDI/Coding staff for physician review: Present Clinical Indicators - Signs / Symptoms / Labs Results and Location in Medical Record [X] WBC 25.9, Plt count 390, Neurtophils 80, Band 5 Laboratory hematology 11/06 [X] Blood culture: No growth at 48 hrs Microbiology 11/06 [X] SIRS scoring: Yes, pt sis meet at least 2 criteria ED notes p3 11/06 [X] BP 143/82, Pulse 114, Resp 24, Temp 101.6 Vital signs 11/06 [X] AMS, subdural hematoma, UTI ED notes p16 11/06 [X] Suspect Sepsis possibly UTI ED notes p16 11/06 [X] Patient has mild fever and tachy H&P p1 11/06 Valera PA-C [X] Urinary tract infection H&P p2 11/06 Valera PA-C Present Risk Factors Results and Location in Medical Record [X] 74-year-old Female H&P p1 11/06 Valera PA-C [X] Hx of urethral stone s/p stent H&P p1 11/06 Valera PA-C [X] Diverticulosis H&P p2 11/06 Valera PA-C [X] Urinary tract infection H&P p2 11/06 Valera PA-C [X] Subdural hematoma H&P p2 11/06 Valera PA-C Present Treatments Results and Location in Medical Record [X] IV Vancomycin 1.50 gm JUN 22 [X] IVS NS 1L JUN 22 [X] IV Zosyn 3.375 gm JUN 22 [X] IV Cefepime 2 gm JUN 22 [X] Blood culture Microbiology 11/06 [X] Pelvis X-ray Imaging Dr John 11/06 [X] Sepsis protocol ED notes p16 11/06 CDS/Director Of Events Signature: Sophy Elizondo Rebeccamaricelmartir Phone #: [facility] [phone] Date/Time: 11/12/19 0223 This is a permanent part of the Medical Record [facility]
--- NOTE | 2019-11-12 02:24 | PQF ---
CLINICAL DOCUMENTATION CLARIFICATION FORM: Dear : Jean Reese Date / Time: 11/12/19 0224 Please exercise your independent, professional judgment in responding to the clarification form. Clinical indicators are provided on the bottom of this form for your review Please check appropriate box(es): [ ] Encephalopathy: Etiology: [ ] Metabolic [ ] Toxic [ X ] In the setting of underlying dementia [ ] Unspecified [ ] Other (please specify) [ ] Transient Alteration of Awareness [ ] Other diagnosis [ ] Unable to determine In addition, please specify: Present on Admission (POA): [ X] Yes [ ] No [ ] Unable to determine Physician Signature: Date/Time: For continuity of documentation, please document condition throughout progress notes and discharge summary. Thank You. To be completed by CDI/Coding staff for physician review: Present Clinical Indicators - Signs / Symptoms / Labs Results and Location in Medical Record [X] WBC 25.9, Plt count 390, Neurtophils 80, Band 5 Laboratory hematology 11/06 [X] BP 143/82, Pulse 114, Resp 24, Temp 101.6 Vital signs 11/06 [X] AMS, subdural hematoma, UTI ED notes p16 11/06 [X] Suspect Sepsis possibly UTI ED notes p16 11/06 [X] Pt alert, confused, did not participate in conversationh H&P p1 11/06 Valera PA-C [X] gPatient has mild fever and tachy H&P p1 11/06 Valera PA-C [X] Subdural hematoma H&P p2 11/06 Valera PA-C Present Risk Factors Results and Location in Medical Record [X] 74-year-old Female H&P p1 11/06 Valera PA-C [X] Hx of urethral stone s/p stent H&P p1 11/06 Valera PA-C [X] Urinary tract infection H&P p2 11/06 Valera PA-C [X] Subdural hematoma H&P p2 11/06 Valera PA-C [X] Dementia H&P p2 11/06 Valera PA-C Present Treatments Results and Location in Medical Record [X] IV Vancomycin 1.50 gm JUN 22 [X] IVS NS 1L JUN 22 [X] IV Zosyn 3.375 gm MAR 7/23 [X] IV Cefepime 2 gm MAR 11/06 [X] CT brain Dr Rojas 11/06 [X] Admitted to IM H&P p2 11/06 Mroaima SERRANO CDS/Paper Products Machine Operator Signature: Sophy Kovacs Phone #: [phone] Date/Time: 11/12/19 3283 This is a permanent part of the Medical Record [facility]
--- NOTE | 2019-11-13 13:11 | CT ---
CT-guided left perinephric fluid collection aspiration HISTORY: Perinephric hematoma/abscess. FINDINGS: After obtaining informed consent, limited CT imaging of the abdomen was performed after adm inistration of IV contrast. The fluid collection at the posterior aspect of the left kidney appears subcapsular. It is 8.2 cm x 4.1 cm greatest diameters on the axial images. It is of homogeneous densi ty averaging 26 Hounsfield units. The wall is thin. No adjacent fat stranding. Sterile technique, buffered local anesthesia, CT guidance, and a lateral approach were used to carefu lly advance a 17-gauge trocar needle into the perinephric fluid collection. Vigorous aspiration, including repositioning of the needle, yielded 10 cc of thick clotted blood. Add itional fluid was unable to be aspirated. Needle was removed. No evidence of complication. IMPRESSION : Technically successful CT-guided aspiration of left perinephric fluid collection. Only a small amount of thick clotted blood was unable to be aspirated. It was sent to laboratory for analysis. Thickness of the clot precluded additional aspiration. Transcribed Date/Time: 11/13/2019 1:11 PM
--- NOTE | 2019-11-13 18:54 | PQF ---
CLINICAL DOCUMENTATION CLARIFICATION FORM: Dear Rand Reese PA-C Date 11/13/19 Please exercise your independent, professional judgment in responding to the clarification form. Clinical indicators are provided on the bottom of this form for your review. Please check appropriate box(es): [ ] Cerebral edema / Vasogenic edema [ ] Compression of brain Due to: [ ] Intracranial tumor [ ] Intracranial hematoma [ ] Acute cerebral infarction [ X ] Traumatic brain injury [ ] Obstructive hydrocephalus [ ] Other diagnosis [ ] Unable to determine In addition, please specify: Present on Admission (POA): [ X ] Yes [ ] No [ ] Unable to determine For continuity of documentation, please document condition throughout progress notes and discharge summary. Thank You. BRAIN CT 11/07: "HYPERDENSE EXTRA-AXIAL FLUID COLLECTION OVERLYING THE LEFT CEREBRAL CONVEXITY MEASURING APPROXIMATELY 7MM IN GREATEST THICKNESS, AXIAL IMAGE 19, WITH MINIMAL LEFT TO RIGHT MIDLINE SHIFT." RISKS: CLOSED HEAD INJURY (PN 11/07) ALTERED MENTAL STATUS (PN 11/07) TREATMENT: NEROSURGERY CONSULT NEURO CHECKS Q 2 HOURS CDS/Unloading Checker Signature: Sridevi Gilbert RN Phone #[phone] 11/13/19 This is a permanent part of the Medical Record [facility]
== END 2019-11-11 15:00 | DRG 964 ==
LOC: ERS 18:32 → ERHOLD 23:22 → IMCU/EMU 11-08 03:51 → SURG A 11-10 14:35
PROVIDERS: ADMIT Specialist; ATTEND Specialist
PROC: 0T9 Urinary System, Drainage (ICD-10-PCS; principal; 2019-11-07)
PROC: 0T9B70Z Drainage of Bladder with Drainage Device, Via Natural or Artificial Opening (ICD-10-PCS; 2019-11-07)
DX: S06.5X9A Traumatic subdural hemorrhage with loss of consciousness of unspecified duration, initial encounter (principal); N39.0 Urinary tract infection, site not specified; S37.012A Minor contusion of left kidney, initial encounter; E87.1 Hypo-osmolality and hyponatremia; G93.49 Other encephalopathy; R40.2342 Coma scale, best motor response, flexion withdrawal, at arrival to emergency department; F03.90 Unspecified dementia, unspecified severity, without behavioral disturbance, psychotic disturbance, mood disturbance, and anxiety; N20.0 Calculus of kidney; K57.90 Diverticulosis of intestine, part unspecified, without perforation or abscess without bleeding; Z20.828 Contact with and (suspected) exposure to other viral communicable diseases; R40.2132 Coma scale, eyes open, to sound, at arrival to emergency department; R40.2232 Coma scale, best verbal response, inappropriate words, at arrival to emergency department; N18.9 Chronic kidney disease, unspecified; I12.9 Hypertensive chronic kidney disease with stage 1 through stage 4 chronic kidney disease, or unspecified chronic kidney disease; J44.9 Chronic obstructive pulmonary disease, unspecified; E03.9 Hypothyroidism, unspecified; W18.30XA Fall on same level, unspecified, initial encounter; Y92.002 Bathroom of unspecified non-institutional (private) residence as the place of occurrence of the external cause; Z87.442 Personal history of urinary calculi; Z91.041 Radiographic dye allergy status; Z78.1 Physical restraint status
CPT/HCPCS: 36415; 36416; 50020; 51702; 70450; 71045; 72170; 74176; 74178; 77012; 80048; 80053; 81003; 81015; 83605; 83735; 84100; 85025; 85060; 85610; 85730; 87040; 87070; 87086; 87205; 89051; 93005; 96361; 96365; 96366; 96367; 96372; 96375; 96376; 99292; G0390; J0692; J1200; J1630; J2060; J2250; J2543; J2920; J3010; J3370; J3475; J3490; J7050; S0028; U0002

== ENCOUNTER 2020-12-27 01:28 | Inpatient (IN) | payer MEDICARE ==
[2020-12-27] MEDS ORDERED: Acetaminophen 325 MG TAB PO PRN ×2 (01:38→17:41)
[2020-12-27] MEDS ORDERED: Senokot S 8.6-50 MG TAB PO PRN (01:38)
[2020-12-27] MEDS ORDERED: Bisacodyl 5 MG TAB PO PRN (01:38)
[2020-12-27] MEDS ORDERED: Ondansetron PF 4 MG/2 ML Vial IVP PRN (01:38)
[2020-12-27] MEDS ORDERED: hydrALAZINE 20 MG/ML VIAL SLOW IVP PRN (01:49)
[2020-12-27 03:06] LABS: #Basophils 0.1 thou/uL (0.0-0.2); #Eosinphils 0.2 thou/uL (0.0-0.7); #Lymphocytes 1.5 thou/uL (1.20-3.40); #Monocytes 1.6 thou/uL (0.11-0.59); #Neutrophils 7.7 thou/uL (1.40-6.50); %Basophils 1.2 % (0.0-1.0); %Eosinophils 2.2 % (0.0-10.0); %Lymphocytes 13.2 % (21.0-51.0); %Monocytes 14.5 % (0.0-10.0); %Neutrophils 68.8 % (42.0-75.0); Hemoglobin 12.4 g/dL (12.0-16.0); Mean Corpuscular HGB CONC 33.5 g/dL (32.0-36.0); Mean Corpuscular Hemoglobin 31.9 pg (27.0-31.0); Mean Corpuscular Volume 95.3 fL (78.0-98.0); Mean Platelet Volume 8.8 fL (7.4-10.4); Platelet Count 337 thou/uL (130-400); RBC Distribution Width 14.2 % (11.5-14.5); White Blood Cell (WBC) Count 11.2 thou/uL (4.8-10.8)
[2020-12-27] MEDS ORDERED: Methyl Salicylate/Menthol 85 GM TUBE TOP PRN (03:15)
[2020-12-27 03:29] LABS: ALT (SGPT) 12 U/L (8-55); AST (SGOT) 32 U/L (5-34); Albumin 1.9 g/dL (3.4-4.8); Alkaline Phosphatase 65 U/L (40-110); Anion Gap 9 mmol/L (10-20); BUN (Urea Nitrogen) 24 mg/dL (9.8-20.1); Bilirubin, Total 0.2 mg/dL (0.2-1.2); Calc. Creatinine Clearance 57 mL/min (70-130); Calcium 7.9 mg/dL (7.8-10.44); Carbon Dioxide 32 mmol/L (23-31); Chloride 101 mmol/L (98-107); Globulin 2.7 g/dL (2.4-3.5); Glucose 108 mg/dL (83-110); Potassium 3.3 mmol/L (3.5-5.1); Protein, Total 4.6 g/dL (5.8-8.1); Sodium 139 mmol/L (136-145)
[2020-12-27 06:19] LABS: Hemoglobin A1c 5.6 % (4.0-6.0)
[2020-12-27] MEDS: Levothyroxine Sodium 125 MCG TAB PO SCH (06:21)
[2020-12-27] MEDS: Furosemide 20 MG/2 ML VIAL SLOW IVP SCH ×2 (06:21→15:12)
[2020-12-27 06:35] LABS: Cardiac Risk 2.5 (Less than 4.5)
[2020-12-27] MEDS: Nystatin/Triamcinolone Ointment 15 GM TUBE TOP SCH ×4 (09:00→21:40)
[2020-12-27] MEDS: Cefepime 1 GM in Sodium Chloride 0.9% 100 ML IVPB SCH ×2 (09:34→21:32)
[2020-12-27] MEDS: Heparin 5,000 UNITS/ML VIAL SC SCH ×3 (11:17→21:34)
[2020-12-27] MEDS: Famotidine 20 MG TAB PO SCH (11:17)
[2020-12-27] MEDS: Clindamycin/D5W 600 MG in Premix Bag 1 BAG IVPB SCH ×2 (11:24→17:36)
[2020-12-27] MEDS: Albumin 25% 25 GM/100 ML BOT IVPB SCH ×2 (18:56→22:56)
[2020-12-27] MEDS: Donepezil HCl 5 MG TAB PO SCH (21:33)
[2020-12-27] MEDS: Divalproex Sodium 125 mg Sprinkle Capsule PO SCH (21:33)
[2020-12-27] MEDS: Polyethylene Glycol 3350 17 GM Packet PO SCH (21:34)
[2020-12-28] MEDS ORDERED: Furosemide 40 MG/4 ML VIAL ONE (01:56)
[2020-12-28] MEDS ORDERED: Furosemide 20 MG/2 ML VIAL SLOW IVP SCH (02:00)
[2020-12-28] MEDS ORDERED: methylPREDNISolone Sod Succ/PF 125 MG/2 ML VIAL IVP SCH (02:15)
[2020-12-28] MEDS ORDERED: Albuterol Sulfate 2.5 mg/3 ml Neb NEB SCH (02:15)
[2020-12-28] MEDS: Clindamycin/D5W 600 MG in Premix Bag 1 BAG IVPB SCH ×3 (02:30→15:54)
[2020-12-28] MEDS: hydrOXYzine 25 MG TAB PO PRN (02:43)
[2020-12-28] MEDS ORDERED: Magnesium 2 GM/50 ML 1 GM in Premix Bag 1 BAG IVPB SCH (02:45)
[2020-12-28 03:33] LABS: Hemoglobin 13.4 g/dL (12.0-16.0); Mean Corpuscular HGB CONC 31.4 g/dL (32.0-36.0); Mean Corpuscular Volume 95.3 fL (78.0-98.0); Mean Platelet Volume 9.3 fL (7.4-10.4); Platelet Count 341 thou/uL (130-400); RBC Distribution Width 14.2 % (11.5-14.5); Red Blood Cell (RBC) Count 4.46 mill/uL (4.20-5.40); White Blood Cell (WBC) Count 24.3 thou/uL (4.8-10.8)
[2020-12-28 03:44] LABS: Anion Gap 15 mmol/L (10-20); BUN (Urea Nitrogen) 21 mg/dL (9.8-20.1); CRP (Inflammatory) 2.12 mg/dL (= or < 0.5); Calc. Creatinine Clearance 51 mL/min (70-130); Calcium 8.5 mg/dL (7.8-10.44); Carbon Dioxide 29 mmol/L (23-31); Chloride 99 mmol/L (98-107); Glucose 135 mg/dL (83-110); Magnesium 1.9 mg/dL (1.6-2.6); Potassium 3.4 mmol/L (3.5-5.1); Sodium 140 mmol/L (136-145)
[2020-12-28 03:47] LABS: Magnesium 1.9 mg/dL (1.6-2.6)
[2020-12-28 04:03] LABS: Band 17 % (5-11); Lymphocytes 7 % (21-51); MDiff Complete? YES; Monocytes 6 % (0-10); Neutrophil 70 % (42-75)
[2020-12-28] MEDS: Albumin 25% 25 GM/100 ML BOT IVPB SCH ×2 (05:15→10:43)
[2020-12-28] MEDS: Furosemide 20 MG/2 ML VIAL SLOW IVP SCH ×2 (06:07→13:39)
[2020-12-28] MEDS: Levothyroxine Sodium 125 MCG TAB PO SCH (06:17)
[2020-12-28] MEDS: Cefepime 1 GM in Sodium Chloride 0.9% 100 ML IVPB SCH ×3 (08:45→21:19)
[2020-12-28] MEDS: Nystatin/Triamcinolone Ointment 15 GM TUBE TOP SCH ×4 (08:54→20:44)
[2020-12-28] MEDS: Aspirin Chewable 81 MG TAB PO SCH (08:55)
[2020-12-28] MEDS: Divalproex Sodium 125 mg Sprinkle Capsule PO SCH ×2 (08:55→20:34)
[2020-12-28] MEDS: Famotidine 20 MG TAB PO SCH (08:55)
[2020-12-28] MEDS: Heparin 5,000 UNITS/ML VIAL SC SCH ×3 (08:56→20:43)
[2020-12-28] MEDS: Potassium Chloride 20 MEQ in Premix Bag 1 BAG IVPB SCH ×2 (10:43→13:38)
[2020-12-28] MEDS: D5 0.9% NS w/ 20 mEq KCl 1,000 ML IV SCH (13:38)
[2020-12-28] MEDS: Donepezil HCl 5 MG TAB PO SCH (20:34)
[2020-12-28] MEDS: Polyethylene Glycol 3350 17 GM Packet PO SCH (20:34)
[2020-12-28] MEDS: HYDROcodone/Acetaminophen 7.5/325 mg Tablet PO PRN (22:19)
[2020-12-29] MEDS: hydrOXYzine 25 MG TAB PO PRN (00:42)
[2020-12-29] MEDS: Clindamycin/D5W 600 MG in Premix Bag 1 BAG IVPB SCH ×3 (00:42→16:47)
[2020-12-29] MEDS: HYDROcodone/Acetaminophen 7.5/325 mg Tablet PO PRN (02:58)
[2020-12-29] MEDS: Furosemide 20 MG/2 ML VIAL SLOW IVP SCH ×2 (05:29→14:07)
[2020-12-29] MEDS: Levothyroxine Sodium 125 MCG TAB PO SCH (05:30)
[2020-12-29 05:58] LABS: Hemoglobin 12.1 g/dL (12.0-16.0); Mean Corpuscular Hemoglobin 30.8 pg (27.0-31.0); Mean Platelet Volume 9.6 fL (7.4-10.4); Platelet Count 301 thou/uL (130-400); RBC Distribution Width 14.4 % (11.5-14.5); Red Blood Cell (RBC) Count 3.93 mill/uL (4.20-5.40)
[2020-12-29 06:12] LABS: ALT (SGPT) 12 U/L (8-55); AST (SGOT) 18 U/L (5-34); Albumin 2.9 g/dL (3.4-4.8); Alkaline Phosphatase 60 U/L (40-110); Anion Gap 17 mmol/L (10-20); BUN (Urea Nitrogen) 31 mg/dL (9.8-20.1); Bilirubin, Total 0.2 mg/dL (0.2-1.2); Calc. Creatinine Clearance 42 mL/min (70-130); Calcium 8.3 mg/dL (7.8-10.44); Carbon Dioxide 27 mmol/L (23-31); Chloride 100 mmol/L (98-107); Globulin 2.3 g/dL (2.4-3.5); Glucose 150 mg/dL (83-110); Magnesium 2.1 mg/dL (1.6-2.6); Potassium 3.7 mmol/L (3.5-5.1); Protein, Total 5.2 g/dL (5.8-8.1); Sodium 140 mmol/L (136-145)
[2020-12-29 06:31] LABS: Band 17 % (5-11); Lymphocytes 4 % (21-51); MDiff Complete? YES; Monocytes 11 % (0-10); Neutrophil 68 % (42-75)
[2020-12-29] MEDS: Aspirin Chewable 81 MG TAB PO SCH (08:19)
[2020-12-29] MEDS: Famotidine 20 MG TAB PO SCH (08:19)
[2020-12-29] MEDS: Divalproex Sodium 125 mg Sprinkle Capsule PO SCH ×2 (08:19→20:32)
[2020-12-29] MEDS: Cefepime 1 GM in Sodium Chloride 0.9% 100 ML IVPB SCH ×2 (08:22→20:31)
[2020-12-29] MEDS: Heparin 5,000 UNITS/ML VIAL SC SCH ×3 (08:22→20:30)
[2020-12-29] MEDS: Nystatin/Triamcinolone Ointment 15 GM TUBE TOP SCH ×4 (08:37→20:32)
[2020-12-29] MEDS: D5 0.9% NS w/ 20 mEq KCl 1,000 ML IV SCH (09:25)
[2020-12-29] MEDS ORDERED: Furosemide 20 MG/2 ML VIAL SLOW IVP SCH (16:45)
[2020-12-29] MEDS: Polyethylene Glycol 3350 17 GM Packet PO SCH (20:32)
[2020-12-29] MEDS: Donepezil HCl 5 MG TAB PO SCH (20:32)
[2020-12-30] MEDS: Clindamycin/D5W 600 MG in Premix Bag 1 BAG IVPB SCH ×3 (01:11→16:24)
[2020-12-30 04:41] LABS: #Basophils 0.1 thou/uL (0.0-0.2); #Eosinphils 0.1 thou/uL (0.0-0.7); #Lymphocytes 2.3 thou/uL (1.20-3.40); #Monocytes 2.7 thou/uL (0.11-0.59); #Neutrophils 14.6 thou/uL (1.40-6.50); %Basophils 0.3 % (0.0-1.0); %Eosinophils 0.3 % (0.0-10.0); %Lymphocytes 11.5 % (21.0-51.0); %Monocytes 13.6 % (0.0-10.0); %Neutrophils 74.4 % (42.0-75.0); Hemoglobin 11.5 g/dL (12.0-16.0); Mean Corpuscular HGB CONC 33.3 g/dL (32.0-36.0); Mean Corpuscular Hemoglobin 32.1 pg (27.0-31.0); Mean Corpuscular Volume 96.2 fL (78.0-98.0); Mean Platelet Volume 9.8 fL (7.4-10.4); Platelet Count 300 thou/uL (130-400); RBC Distribution Width 14.4 % (11.5-14.5); Red Blood Cell (RBC) Count 3.59 mill/uL (4.20-5.40); White Blood Cell (WBC) Count 19.7 thou/uL (4.8-10.8)
[2020-12-30 05:05] LABS: Anion Gap 15 mmol/L (10-20); BUN (Urea Nitrogen) 35 mg/dL (9.8-20.1); Calc. Creatinine Clearance 45 mL/min (70-130); Calcium 8.3 mg/dL (7.8-10.44); Carbon Dioxide 31 mmol/L (23-31); Chloride 101 mmol/L (98-107); Glucose 86 mg/dL (83-110); Potassium 3.6 mmol/L (3.5-5.1); Sodium 143 mmol/L (136-145)
[2020-12-30] MEDS: Furosemide 20 MG/2 ML VIAL SLOW IVP SCH ×2 (05:22→14:29)
[2020-12-30] MEDS: Levothyroxine Sodium 125 MCG TAB PO SCH (05:22)
[2020-12-30] MEDS: Famotidine 20 MG TAB PO SCH (08:08)
[2020-12-30] MEDS: Divalproex Sodium 125 mg Sprinkle Capsule PO SCH ×2 (08:08→20:46)
[2020-12-30] MEDS: Aspirin Chewable 81 MG TAB PO SCH (08:08)
[2020-12-30] MEDS: Budesonide 0.5 MG/2 ML NEB NEB SCH ×2 (08:13→19:40)
[2020-12-30] MEDS: Heparin 5,000 UNITS/ML VIAL SC SCH ×3 (08:22→20:46)
[2020-12-30] MEDS: Cefepime 1 GM in Sodium Chloride 0.9% 100 ML IVPB SCH (08:22)
[2020-12-30] MEDS: Nystatin/Triamcinolone Ointment 15 GM TUBE TOP SCH ×4 (08:23→20:49)
[2020-12-30] MEDS: Famotidine/PF 20 mg/2ml Vial SLOW IVP SCH (11:31)
[2020-12-30] MEDS: HYDROcodone/Acetaminophen 5/325 mg Tablet PO PRN (16:22)
[2020-12-30] MEDS: methylPREDNISolone Sod Succ 40 MG VIAL IVP SCH (16:24)
[2020-12-30] MEDS: Donepezil HCl 5 MG TAB PO SCH (20:46)
[2020-12-30] MEDS: Polyethylene Glycol 3350 17 GM Packet PO SCH (20:47)
[2020-12-31] MEDS: methylPREDNISolone Sod Succ 40 MG VIAL IVP SCH ×4 (01:14→22:48)
[2020-12-31] MEDS: Clindamycin/D5W 600 MG in Premix Bag 1 BAG IVPB SCH ×3 (01:15→15:50)
[2020-12-31 04:36] LABS: #Lymphocytes 1.1 thou/uL (1.20-3.40); #Monocytes 0.4 thou/uL (0.11-0.59); #Neutrophils 14.3 thou/uL (1.40-6.50); %Basophils 0.1 % (0.0-1.0); %Eosinophils 0.1 % (0.0-10.0); %Lymphocytes 6.9 % (21.0-51.0); %Monocytes 2.4 % (0.0-10.0); %Neutrophils 90.5 % (42.0-75.0); Hemoglobin 12.1 g/dL (12.0-16.0); Mean Corpuscular HGB CONC 31.5 g/dL (32.0-36.0); Mean Corpuscular Hemoglobin 30.3 pg (27.0-31.0); Mean Corpuscular Volume 96.2 fL (78.0-98.0); Mean Platelet Volume 9.5 fL (7.4-10.4); Platelet Count 319 thou/uL (130-400); RBC Distribution Width 14.2 % (11.5-14.5); White Blood Cell (WBC) Count 15.8 thou/uL (4.8-10.8)
[2020-12-31] MEDS: Levothyroxine Sodium 125 MCG TAB PO SCH (05:00)
[2020-12-31] MEDS: Furosemide 20 MG/2 ML VIAL SLOW IVP SCH (05:00)
[2020-12-31 05:03] LABS: Anion Gap 15 mmol/L (10-20); BUN (Urea Nitrogen) 40 mg/dL (9.8-20.1); Calc. Creatinine Clearance 39 mL/min (70-130); Calcium 8.3 mg/dL (7.8-10.44); Carbon Dioxide 30 mmol/L (23-31); Chloride 101 mmol/L (98-107); Glucose 145 mg/dL (83-110); Sodium 142 mmol/L (136-145)
[2020-12-31] MEDS: Divalproex Sodium 125 mg Sprinkle Capsule PO SCH ×2 (08:18→21:19)
[2020-12-31] MEDS: Aspirin Chewable 81 MG TAB PO SCH (08:18)
[2020-12-31] MEDS: Famotidine/PF 20 mg/2ml Vial SLOW IVP SCH (08:19)
[2020-12-31] MEDS: Heparin 5,000 UNITS/ML VIAL SC SCH ×3 (08:20→21:27)
[2020-12-31] MEDS: Nystatin/Triamcinolone Ointment 15 GM TUBE TOP SCH ×4 (08:21→21:20)
[2020-12-31] MEDS: Budesonide 0.5 MG/2 ML NEB NEB SCH ×2 (11:50→19:28)
[2020-12-31] MEDS: Donepezil HCl 5 MG TAB PO SCH (21:19)
[2020-12-31] MEDS: Polyethylene Glycol 3350 17 GM Packet PO SCH (21:33)
[2021-01-01] MEDS: Clindamycin/D5W 600 MG in Premix Bag 1 BAG IVPB SCH ×3 (00:10→17:29)
[2021-01-01 04:22] LABS: #Lymphocytes 1.3 thou/uL (1.20-3.40); #Monocytes 0.5 thou/uL (0.11-0.59); #Neutrophils 13.2 thou/uL (1.40-6.50); %Basophils 0.2 % (0.0-1.0); %Eosinophils 0.1 % (0.0-10.0); %Lymphocytes 8.6 % (21.0-51.0); %Monocytes 3.4 % (0.0-10.0); %Neutrophils 87.7 % (42.0-75.0); Hemoglobin 11.6 g/dL (12.0-16.0); Mean Corpuscular Hemoglobin 30.8 pg (27.0-31.0); Mean Corpuscular Volume 96.4 fL (78.0-98.0); Mean Platelet Volume 9.6 fL (7.4-10.4); Platelet Count 342 thou/uL (130-400); RBC Distribution Width 14.1 % (11.5-14.5); Red Blood Cell (RBC) Count 3.75 mill/uL (4.20-5.40); White Blood Cell (WBC) Count 15.1 thou/uL (4.8-10.8)
[2021-01-01 04:48] LABS: Anion Gap 11 mmol/L (10-20); BUN (Urea Nitrogen) 47 mg/dL (9.8-20.1); Calc. Creatinine Clearance 43 mL/min (70-130); Calcium 8.1 mg/dL (7.8-10.44); Carbon Dioxide 33 mmol/L (23-31); Chloride 101 mmol/L (98-107); Glucose 132 mg/dL (83-110); Potassium 4.3 mmol/L (3.5-5.1); Sodium 141 mmol/L (136-145)
[2021-01-01] MEDS: Levothyroxine Sodium 125 MCG TAB PO SCH (05:19)
[2021-01-01] MEDS: Aspirin Chewable 81 MG TAB PO SCH (08:34)
[2021-01-01] MEDS: Famotidine/PF 20 mg/2ml Vial SLOW IVP SCH (08:35)
[2021-01-01] MEDS: methylPREDNISolone Sod Succ 40 MG VIAL IVP SCH ×3 (08:35→23:03)
[2021-01-01] MEDS: Divalproex Sodium 125 mg Sprinkle Capsule PO SCH ×2 (08:35→20:33)
[2021-01-01] MEDS: Heparin 5,000 UNITS/ML VIAL SC SCH ×3 (08:36→20:34)
[2021-01-01] MEDS: Nystatin/Triamcinolone Ointment 15 GM TUBE TOP SCH ×4 (08:37→20:33)
[2021-01-01] MEDS: Budesonide 0.5 MG/2 ML NEB NEB SCH ×2 (08:41→17:26)
[2021-01-01] MEDS ORDERED: Furosemide 20 MG/2 ML VIAL SLOW IVP SCH (09:00)
[2021-01-01] MEDS ORDERED: AcetaZOLAMIDE 250 MG TAB PO SCH ×2 (10:35→10:45)
[2021-01-01] MEDS: Furosemide 20 MG/2 ML VIAL SLOW IVP SCH (14:43)
[2021-01-01] MEDS: Polyethylene Glycol 3350 17 GM Packet PO SCH (20:32)
[2021-01-01] MEDS: AcetaZOLAMIDE 250 MG TAB PO SCH (20:33)
[2021-01-01] MEDS: Donepezil HCl 5 MG TAB PO SCH (20:33)
[2021-01-01] MEDS: HYDROcodone/Acetaminophen 7.5/325 mg Tablet PO PRN (22:41)
[2021-01-02] MEDS: Clindamycin/D5W 600 MG in Premix Bag 1 BAG IVPB SCH ×3 (02:04→18:34)
[2021-01-02] MEDS: hydrOXYzine 25 MG TAB PO PRN (04:17)
[2021-01-02 04:41] LABS: Anion Gap 15 mmol/L (10-20); BUN (Urea Nitrogen) 57 mg/dL (9.8-20.1); Calc. Creatinine Clearance 42 mL/min (70-130); Calcium 8.4 mg/dL (7.8-10.44); Carbon Dioxide 32 mmol/L (23-31); Chloride 99 mmol/L (98-107); Glucose 131 mg/dL (83-110); Potassium 5.1 mmol/L (3.5-5.1); Sodium 141 mmol/L (136-145)
[2021-01-02 05:00] LABS: Hemoglobin 12.2 g/dL (12.0-16.0); Mean Corpuscular HGB CONC 31.4 g/dL (32.0-36.0); Mean Corpuscular Hemoglobin 30.5 pg (27.0-31.0); Mean Corpuscular Volume 96.9 fL (78.0-98.0); Mean Platelet Volume 9.8 fL (7.4-10.4); Platelet Count 398 thou/uL (130-400); RBC Distribution Width 14.1 % (11.5-14.5); Red Blood Cell (RBC) Count 3.99 mill/uL (4.20-5.40); White Blood Cell (WBC) Count 14.1 thou/uL (4.8-10.8)
[2021-01-02] MEDS: Furosemide 20 MG/2 ML VIAL SLOW IVP SCH (05:20)
[2021-01-02] MEDS: Levothyroxine Sodium 125 MCG TAB PO SCH (05:21)
[2021-01-02 06:47] LABS: Lymphocytes 8 % (21-51); MDiff Complete? YES; Monocytes 5 % (0-10); Neutrophil 87 % (42-75); Platelet Morphology Comment Appears Increased; RBC Morphology Normal
[2021-01-02] MEDS: Budesonide 0.5 MG/2 ML NEB NEB SCH ×2 (08:05→18:58)
[2021-01-02] MEDS: methylPREDNISolone Sod Succ 40 MG VIAL IVP SCH ×3 (08:42→22:48)
[2021-01-02] MEDS: AcetaZOLAMIDE 250 MG TAB PO SCH ×2 (08:44→22:47)
[2021-01-02] MEDS: Aspirin Chewable 81 MG TAB PO SCH (08:45)
[2021-01-02] MEDS: Divalproex Sodium 125 mg Sprinkle Capsule PO SCH ×2 (08:45→22:47)
[2021-01-02] MEDS: Heparin 5,000 UNITS/ML VIAL SC SCH ×3 (08:46→23:05)
[2021-01-02] MEDS: Famotidine 20 MG TAB PO SCH (08:52)
[2021-01-02] MEDS: Nystatin/Triamcinolone Ointment 15 GM TUBE TOP SCH ×4 (09:02→22:48)
[2021-01-02] MEDS ORDERED: Bacteriostatic Water 30 ML VIAL FS PRN (21:00)
[2021-01-02] MEDS: Donepezil HCl 5 MG TAB PO SCH (22:48)
[2021-01-02] MEDS: Polyethylene Glycol 3350 17 GM Packet PO SCH (22:49)
[2021-01-03] MEDS: Clindamycin/D5W 600 MG in Premix Bag 1 BAG IVPB SCH ×3 (01:48→15:58)
[2021-01-03] MEDS: Levothyroxine Sodium 125 MCG TAB PO SCH (06:15)
[2021-01-03] MEDS: Budesonide 0.5 MG/2 ML NEB NEB SCH ×2 (08:00→19:01)
[2021-01-03 09:09] LABS: #Basophils 0.1 thou/uL (0.0-0.2); #Eosinphils 0.1 thou/uL (0.0-0.7); #Lymphocytes 2.4 thou/uL (1.20-3.40); #Monocytes 1.2 thou/uL (0.11-0.59); #Neutrophils 9.7 thou/uL (1.40-6.50); %Basophils 0.5 % (0.0-1.0); %Eosinophils 0.5 % (0.0-10.0); %Lymphocytes 17.5 % (21.0-51.0); %Monocytes 9.2 % (0.0-10.0); %Neutrophils 72.3 % (42.0-75.0); Hemoglobin 12.7 g/dL (12.0-16.0); Mean Corpuscular Hemoglobin 30.5 pg (27.0-31.0); Mean Corpuscular Volume 95.5 fL (78.0-98.0); Mean Platelet Volume 9.7 fL (7.4-10.4); Platelet Count 343 thou/uL (130-400); RBC Distribution Width 13.9 % (11.5-14.5); Red Blood Cell (RBC) Count 4.17 mill/uL (4.20-5.40); White Blood Cell (WBC) Count 13.4 thou/uL (4.8-10.8)
[2021-01-03 09:30] LABS: Anion Gap 13 mmol/L (10-20); BUN (Urea Nitrogen) 61 mg/dL (9.8-20.1); Calc. Creatinine Clearance 48 mL/min (70-130); Calcium 8.3 mg/dL (7.8-10.44); Carbon Dioxide 33 mmol/L (23-31); Chloride 101 mmol/L (98-107); Glucose 107 mg/dL (83-110); Potassium 4.8 mmol/L (3.5-5.1); Sodium 142 mmol/L (136-145)
[2021-01-03] MEDS: methylPREDNISolone Sod Succ 40 MG VIAL IVP SCH ×2 (10:37→21:52)
[2021-01-03] MEDS: AcetaZOLAMIDE 250 MG TAB PO SCH ×2 (10:38→21:52)
[2021-01-03] MEDS: Heparin 5,000 UNITS/ML VIAL SC SCH ×3 (10:38→21:51)
[2021-01-03] MEDS: Divalproex Sodium 125 mg Sprinkle Capsule PO SCH ×2 (10:38→21:52)
[2021-01-03] MEDS: Aspirin Chewable 81 MG TAB PO SCH (10:38)
[2021-01-03] MEDS: Famotidine 20 MG TAB PO SCH (10:38)
[2021-01-03] MEDS: Nystatin/Triamcinolone Ointment 15 GM TUBE TOP SCH ×4 (10:40→21:52)
[2021-01-03] MEDS: Furosemide 100 MG in Sodium Chloride 0.9% 90 ML IVPB SCH (17:28)
[2021-01-03] MEDS: Polyethylene Glycol 3350 17 GM Packet PO SCH (21:52)
[2021-01-03] MEDS: Donepezil HCl 5 MG TAB PO SCH (21:52)
[2021-01-03] MEDS: Clindamycin 150 MG CAP PO SCH (23:30)
[2021-01-03] MEDS: HYDROcodone/Acetaminophen 7.5/325 mg Tablet PO PRN (23:30)
[2021-01-04] MEDS: Budesonide 0.5 MG/2 ML NEB NEB SCH ×2 (01:27→09:16)
[2021-01-04 05:32] LABS: #Eosinphils 0.1 thou/uL (0.0-0.7); #Lymphocytes 1.7 thou/uL (1.20-3.40); #Monocytes 0.5 thou/uL (0.11-0.59); #Neutrophils 10.7 thou/uL (1.40-6.50); %Basophils 0.1 % (0.0-1.0); %Eosinophils 0.6 % (0.0-10.0); %Lymphocytes 13.2 % (21.0-51.0); %Monocytes 3.5 % (0.0-10.0); %Neutrophils 82.7 % (42.0-75.0); Mean Corpuscular HGB CONC 31.6 g/dL (32.0-36.0); Mean Corpuscular Hemoglobin 30.1 pg (27.0-31.0); Mean Corpuscular Volume 95.2 fL (78.0-98.0); Mean Platelet Volume 9.8 fL (7.4-10.4); Platelet Count 363 thou/uL (130-400); RBC Distribution Width 13.8 % (11.5-14.5); Red Blood Cell (RBC) Count 3.97 mill/uL (4.20-5.40); White Blood Cell (WBC) Count 12.9 thou/uL (4.8-10.8)
[2021-01-04] MEDS: Levothyroxine Sodium 125 MCG TAB PO SCH (05:46)
[2021-01-04 05:56] LABS: Anion Gap 13 mmol/L (10-20); BUN (Urea Nitrogen) 60 mg/dL (9.8-20.1); Calc. Creatinine Clearance 51 mL/min (70-130); Carbon Dioxide 33 mmol/L (23-31); Chloride 102 mmol/L (98-107); Glucose 126 mg/dL (83-110); Potassium 4.7 mmol/L (3.5-5.1); Sodium 143 mmol/L (136-145)
[2021-01-04] MEDS: Divalproex Sodium 125 mg Sprinkle Capsule PO SCH ×2 (09:23→22:13)
[2021-01-04] MEDS: Aspirin Chewable 81 MG TAB PO SCH (09:23)
[2021-01-04] MEDS: Clindamycin 150 MG CAP PO SCH ×2 (09:23→16:07)
[2021-01-04] MEDS: Nystatin/Triamcinolone Ointment 15 GM TUBE TOP SCH ×5 (09:23→22:14)
[2021-01-04] MEDS: Heparin 5,000 UNITS/ML VIAL SC SCH ×3 (09:24→22:13)
[2021-01-04] MEDS: Famotidine 20 MG TAB PO SCH (09:24)
[2021-01-04] MEDS: AcetaZOLAMIDE 250 MG TAB PO SCH ×2 (09:24→22:14)
[2021-01-04] MEDS: methylPREDNISolone Sod Succ 40 MG VIAL IVP SCH ×2 (09:25→22:14)
[2021-01-04] MEDS: Furosemide 100 MG in Sodium Chloride 0.9% 90 ML IVPB SCH (22:13)
[2021-01-04] MEDS: Donepezil HCl 5 MG TAB PO SCH (22:14)
[2021-01-04] MEDS: Polyethylene Glycol 3350 17 GM Packet PO SCH (22:16)
[2021-01-05] MEDS: Clindamycin 150 MG CAP PO SCH ×3 (01:05→16:41)
[2021-01-05 06:07] LABS: Anion Gap 11 mmol/L (10-20); BUN (Urea Nitrogen) 59 mg/dL (9.8-20.1); Calc. Creatinine Clearance 57 mL/min (70-130); Calcium 7.9 mg/dL (7.8-10.44); Carbon Dioxide 35 mmol/L (23-31); Chloride 103 mmol/L (98-107); Glucose 116 mg/dL (83-110); Potassium 4.5 mmol/L (3.5-5.1); Sodium 144 mmol/L (136-145)
[2021-01-05] MEDS: HYDROcodone/Acetaminophen 5/325 mg Tablet PO PRN ×2 (06:29→13:06)
[2021-01-05] MEDS: Levothyroxine Sodium 125 MCG TAB PO SCH (06:30)
[2021-01-05] MEDS: Budesonide 0.5 MG/2 ML NEB NEB SCH ×2 (07:05→18:43)
[2021-01-05] MEDS ORDERED: predniSONE 20 MG TAB PO SCH (08:30)
[2021-01-05] MEDS: Heparin 5,000 UNITS/ML VIAL SC SCH ×3 (09:20→22:18)
[2021-01-05] MEDS: Famotidine 20 MG TAB PO SCH (09:21)
[2021-01-05] MEDS: Divalproex Sodium 125 mg Sprinkle Capsule PO SCH ×2 (09:21→22:17)
[2021-01-05] MEDS: Nystatin/Triamcinolone Ointment 15 GM TUBE TOP SCH ×4 (09:22→22:17)
[2021-01-05] MEDS: Aspirin Chewable 81 MG TAB PO SCH (09:22)
[2021-01-05] MEDS: AcetaZOLAMIDE 250 MG TAB PO SCH ×2 (09:22→22:17)
[2021-01-05] MEDS: Acetaminophen 325 MG TAB PO PRN (09:30)
[2021-01-05 13:54] VITALS: BMI 31.7
[2021-01-05] MEDS: Polyethylene Glycol 3350 17 GM Packet PO SCH (22:17)
[2021-01-05] MEDS: Donepezil HCl 5 MG TAB PO SCH (22:17)
[2021-01-06] MEDS: Clindamycin 150 MG CAP PO SCH ×3 (00:36→16:37)
[2021-01-06] MEDS: Furosemide 100 MG in Sodium Chloride 0.9% 90 ML IVPB SCH (03:12)
[2021-01-06] MEDS: HYDROcodone/Acetaminophen 7.5/325 mg Tablet PO PRN (04:58)
[2021-01-06] MEDS: Levothyroxine Sodium 125 MCG TAB PO SCH (04:58)
[2021-01-06 05:22] LABS: Anion Gap 11 mmol/L (10-20); BUN (Urea Nitrogen) 55 mg/dL (9.8-20.1); Calc. Creatinine Clearance 55 mL/min (70-130); Calcium 8.3 mg/dL (7.8-10.44); Carbon Dioxide 37 mmol/L (23-31); Chloride 101 mmol/L (98-107); Glucose 90 mg/dL (83-110); Potassium 3.9 mmol/L (3.5-5.1); Sodium 145 mmol/L (136-145)
[2021-01-06] MEDS: Budesonide 0.5 MG/2 ML NEB NEB SCH ×2 (07:26→18:00)
[2021-01-06] MEDS: Divalproex Sodium 125 mg Sprinkle Capsule PO SCH ×2 (08:18→21:47)
[2021-01-06] MEDS: Heparin 5,000 UNITS/ML VIAL SC SCH ×3 (08:19→21:45)
[2021-01-06] MEDS: Aspirin Chewable 81 MG TAB PO SCH (08:19)
[2021-01-06] MEDS: predniSONE 20 MG TAB PO SCH (08:19)
[2021-01-06] MEDS: Famotidine 20 MG TAB PO SCH (08:19)
[2021-01-06] MEDS: AcetaZOLAMIDE 250 MG TAB PO SCH ×2 (08:19→21:47)
[2021-01-06] MEDS: Nystatin/Triamcinolone Ointment 15 GM TUBE TOP SCH ×4 (08:46→21:47)
[2021-01-06] MEDS: Donepezil HCl 5 MG TAB PO SCH (21:47)
[2021-01-06] MEDS: Acetaminophen 325 MG TAB PO PRN (21:47)
[2021-01-06] MEDS: Polyethylene Glycol 3350 17 GM Packet PO SCH (21:47)
[2021-01-07] MEDS: Clindamycin 150 MG CAP PO SCH ×3 (01:01→16:49)
[2021-01-07] MEDS: Levothyroxine Sodium 125 MCG TAB PO SCH (05:56)
[2021-01-07] MEDS: Budesonide 0.5 MG/2 ML NEB NEB SCH ×2 (07:42→19:19)
[2021-01-07] MEDS: Famotidine 20 MG TAB PO SCH (09:10)
[2021-01-07] MEDS: Aspirin Chewable 81 MG TAB PO SCH (09:10)
[2021-01-07] MEDS: predniSONE 20 MG TAB PO SCH (09:10)
[2021-01-07] MEDS: AcetaZOLAMIDE 250 MG TAB PO SCH ×2 (09:10→20:55)
[2021-01-07] MEDS: Divalproex Sodium 125 mg Sprinkle Capsule PO SCH ×2 (09:10→20:55)
[2021-01-07] MEDS: Heparin 5,000 UNITS/ML VIAL SC SCH ×3 (09:11→20:51)
[2021-01-07] MEDS: Furosemide 100 MG in Sodium Chloride 0.9% 90 ML IVPB SCH (09:35)
[2021-01-07] MEDS: HYDROcodone/Acetaminophen 5/325 mg Tablet PO PRN ×2 (12:19→20:55)
[2021-01-07] MEDS: Nystatin/Triamcinolone Ointment 15 GM TUBE TOP SCH ×4 (12:20→20:54)
[2021-01-07 14:18] LABS: Anion Gap 13 mmol/L (10-20); BUN (Urea Nitrogen) 53 mg/dL (9.8-20.1); Calc. Creatinine Clearance 56 mL/min (70-130); Calcium 8.1 mg/dL (7.8-10.44); Carbon Dioxide 35 mmol/L (23-31); Chloride 103 mmol/L (98-107); Glucose 128 mg/dL (83-110); Magnesium 1.8 mg/dL (1.6-2.6); Potassium 3.8 mmol/L (3.5-5.1); Sodium 147 mmol/L (136-145)
[2021-01-07] MEDS ORDERED: Furosemide 100 MG in Sodium Chloride 0.9% 90 ML IVPB SCH (17:09)
[2021-01-07] MEDS: Polyethylene Glycol 3350 17 GM Packet PO SCH (20:54)
[2021-01-07] MEDS: Donepezil HCl 5 MG TAB PO SCH (20:55)
[2021-01-08 05:01] LABS: Anion Gap 11 mmol/L (10-20); BUN (Urea Nitrogen) 50 mg/dL (9.8-20.1); Calc. Creatinine Clearance 53 mL/min (70-130); Calcium 7.9 mg/dL (7.8-10.44); Carbon Dioxide 34 mmol/L (23-31); Chloride 103 mmol/L (98-107); Glucose 96 mg/dL (83-110); Potassium 4.1 mmol/L (3.5-5.1); Sodium 144 mmol/L (136-145)
[2021-01-08] MEDS: Levothyroxine Sodium 125 MCG TAB PO SCH (05:46)
[2021-01-08] MEDS: Aspirin Chewable 81 MG TAB PO SCH (09:05)
[2021-01-08] MEDS: predniSONE 20 MG TAB PO SCH (09:05)
[2021-01-08] MEDS: Famotidine 20 MG TAB PO SCH (09:06)
[2021-01-08] MEDS: Divalproex Sodium 125 mg Sprinkle Capsule PO SCH (09:06)
[2021-01-08] MEDS: Furosemide 40 MG TAB PO SCH ×2 (09:06→15:01)
[2021-01-08] MEDS: AcetaZOLAMIDE 250 MG TAB PO SCH (09:06)
[2021-01-08] MEDS: Heparin 5,000 UNITS/ML VIAL SC SCH ×2 (09:07→15:01)
[2021-01-08] MEDS: Nystatin/Triamcinolone Ointment 15 GM TUBE TOP SCH ×2 (09:11→15:01)
[2021-01-08] MEDS: HYDROcodone/Acetaminophen 5/325 mg Tablet PO PRN (11:31)
[2021-01-08] MEDS: Budesonide 0.5 MG/2 ML NEB NEB SCH (13:24)
[2021-01-08 15:46] VITALS: BP 122/68; TEMP 98.5
== END 2021-01-08 15:40 | DRG 602 ==
LOC: 2NO 01:28
PROVIDERS: ADMIT Internal Medicine; ATTEND Internal Medicine
DX: L03.115 Cellulitis of right lower limb (principal); I50.33 Acute on chronic diastolic (congestive) heart failure; G92 Toxic encephalopathy; J69.0 Pneumonitis due to inhalation of food and vomit; N17.9 Acute kidney failure, unspecified; I13.0 Hypertensive heart and chronic kidney disease with heart failure and stage 1 through stage 4 chronic kidney disease, or unspecified chronic kidney disease; J44.1 Chronic obstructive pulmonary disease with (acute) exacerbation; N18.4 Chronic kidney disease, stage 4 (severe); E87.3 Alkalosis; E87.0 Hyperosmolality and hypernatremia; Z20.822 Contact with and (suspected) exposure to COVID-19; L03.116 Cellulitis of left lower limb; E03.9 Hypothyroidism, unspecified; J45.909 Unspecified asthma, uncomplicated; F32.9 Major depressive disorder, single episode, unspecified; S81.801A Unspecified open wound, right lower leg, initial encounter; E66.9 Obesity, unspecified; H91.93 Unspecified hearing loss, bilateral; R13.10 Dysphagia, unspecified; E11.22 Type 2 diabetes mellitus with diabetic chronic kidney disease; E78.5 Hyperlipidemia, unspecified; B95.61 Methicillin susceptible Staphylococcus aureus infection as the cause of diseases classified elsewhere; E87.6 Hypokalemia; R19.7 Diarrhea, unspecified; Z90.49 Acquired absence of other specified parts of digestive tract; Z91.041 Radiographic dye allergy status; Z79.82 Long term (current) use of aspirin; Z79.890 Hormone replacement therapy; Z79.899 Other long term (current) drug therapy; Z68.31 Body mass index [BMI] 31.0-31.9, adult; Z68.34 Body mass index [BMI] 34.0-34.9, adult
CPT/HCPCS: 36415; 71045; 71046; 74230; 76770; 80048; 80053; 80061; 83036; 83735; 83880; 84443; 85025; 86140; 87040; 87070; 87077; 87186; 87205; 90471; 90732; 93306; 93970; 94640; G0009; J0360; J0692; J1644; J1940; J2920; J2930; J3475; J3480; J3490; J7512; J7611; J7620; J7626; P9047; S0028

== ENCOUNTER 2021-03-16 00:01 | Inpatient (IN) | payer MEDICARE, MEDICAID ==
[2021-03-16 01:26] LABS: #Eosinphils 0.1 thou/uL (0.0-0.7); #Lymphocytes 2.5 thou/uL (1.20-3.40); #Neutrophils 7.7 thou/uL (1.40-6.50); %Basophils 0.4 % (0.0-1.0); %Eosinophils 0.6 % (0.0-10.0); %Lymphocytes 21.9 % (21.0-51.0); %Neutrophils 68.1 % (42.0-75.0); Hemoglobin 11.3 g/dL (12.0-16.0); Mean Corpuscular HGB CONC 33.2 g/dL (32.0-36.0); Mean Corpuscular Hemoglobin 33.2 pg (27.0-31.0); Platelet Count 370 thou/uL (130-400); RBC Distribution Width 14.9 % (11.5-14.5); White Blood Cell (WBC) Count 11.3 thou/uL (4.8-10.8)
[2021-03-16 01:47] LABS: ALT (SGPT) Less than 7 U/L (8-55); AST (SGOT) 12 U/L (5-34); Albumin 1.7 g/dL (3.4-4.8); Alkaline Phosphatase 73 U/L (40-110); Anion Gap 12 mmol/L (10-20); BUN (Urea Nitrogen) 22 mg/dL (9.8-20.1); Bilirubin, Total Less than 0.2 mg/dL (0.2-1.2); Calc. Creatinine Clearance 0 mL/min (70-130); Calcium 7.9 mg/dL (7.8-10.44); Carbon Dioxide 30 mmol/L (23-31); Chloride 103 mmol/L (98-107); Globulin 3.6 g/dL (2.4-3.5); Glucose 71 mg/dL (83-110); Potassium 3.6 mmol/L (3.5-5.1); Protein, Total 5.3 g/dL (5.8-8.1); Sodium 141 mmol/L (136-145)
[2021-03-16 02:09] LABS: CKMB 1.7 ng/mL (0-6.6)
[2021-03-16] MEDS ORDERED: Furosemide 40 MG/4 ML VIAL ONE (02:15)
[2021-03-16] MEDS ORDERED: Aspirin 81 mg Enteric Coated Tablet ONE (02:15)
[2021-03-16 02:32] LABS: Bacteria/HPF None Seen HPF (None Seen); Bilirubin Negative (Negative); Blood, Urine 1+ (Negative); Clarity Turbid (Clear); Glucose, Urine (Dipstick) 150 mg/dL (Negative); Ketone, Urine Trace mg/dL (Negative); Leukocyte Negative Leu/uL (Negative); Nitrite Negative (Negative); Protein, Urine (Dipstick) 600 mg/dL (Neg-Trace); RBC/HPF 0-3 HPF (0-3); Specific Gravity, Urine 1.025 (1.002-1.036); Squamous Epithelial 0-3 HPF (0-3); Urobilinogen Normal mg/dL (Less than 2)
[2021-03-16 02:53] LABS: SARS-CoV-2 NAA Rapid Test Not Detected (NotDetected)
[2021-03-16] MEDS ORDERED: Cefepime 2 GM VIAL ONE (03:20)
[2021-03-16] MEDS ORDERED: Vancomycin 1 GM/200 ML BAG ONE (03:20)
[2021-03-16 05:12] LABS: Troponin I 0.234 ng/mL (< 0.028)
[2021-03-16 08:48] LABS: Troponin I 0.262 ng/mL (< 0.028)
[2021-03-16] MEDS ORDERED: Acetaminophen 325 MG TAB PO PRN (09:52)
[2021-03-16] MEDS ORDERED: Aspirin Chewable 81 MG TAB PO SCH (10:00)
[2021-03-16] MEDS ORDERED: Divalproex Sodium 125 mg Sprinkle Capsule PO SCH (10:00)
[2021-03-16] MEDS ORDERED: predniSONE 20 MG TAB PO SCH (10:00)
[2021-03-16] MEDS: Heparin 5,000 UNITS/ML VIAL SC SCH ×2 (15:05→22:37)
[2021-03-16] MEDS: Furosemide 20 MG/2 ML VIAL SLOW IVP SCH (15:05)
[2021-03-16] MEDS: Divalproex Sodium 125 mg Sprinkle Capsule PO SCH (22:37)
[2021-03-16] MEDS: Donepezil HCl 5 MG TAB PO SCH (22:37)
[2021-03-16] MEDS ORDERED: diphenhydrAMINE 50 MG/ML VIAL IVP SCH (23:59)
[2021-03-17] MEDS ORDERED: LACTINEX 1 TAB PO SCH (05:00)
[2021-03-17] MEDS: Levothyroxine Sodium 125 MCG TAB PO SCH (05:27)
[2021-03-17] MEDS: Furosemide 20 MG/2 ML VIAL SLOW IVP SCH ×2 (05:27→14:22)
[2021-03-17 06:09] LABS: #Lymphocytes 2.2 thou/uL (1.20-3.40); #Monocytes 0.9 thou/uL (0.11-0.59); #Neutrophils 6.9 thou/uL (1.40-6.50); %Basophils 0.3 % (0.0-1.0); %Eosinophils 0.3 % (0.0-10.0); %Lymphocytes 21.4 % (21.0-51.0); Mean Corpuscular HGB CONC 31.8 g/dL (32.0-36.0); Mean Platelet Volume 8.7 fL (7.4-10.4); Platelet Count 330 thou/uL (130-400); Red Blood Cell (RBC) Count 3.12 mill/uL (4.20-5.40)
[2021-03-17 06:27] LABS: Anion Gap 10 mmol/L (10-20); BUN (Urea Nitrogen) 24 mg/dL (9.8-20.1); Calc. Creatinine Clearance 30 mL/min (70-130); Calcium 7.5 mg/dL (7.8-10.44); Carbon Dioxide 32 mmol/L (23-31); Chloride 102 mmol/L (98-107); Glucose 75 mg/dL (83-110); Potassium 3.7 mmol/L (3.5-5.1); Sodium 140 mmol/L (136-145)
[2021-03-17] MEDS ORDERED: predniSONE 20 MG TAB PO SCH (08:00)
[2021-03-17] MEDS: Heparin 5,000 UNITS/ML VIAL SC SCH ×3 (09:33→21:30)
[2021-03-17] MEDS: Aspirin Chewable 81 MG TAB PO SCH (09:33)
[2021-03-17] MEDS: Divalproex Sodium 125 mg Sprinkle Capsule PO SCH ×2 (09:33→22:18)
[2021-03-17 18:57] LABS: Creatinine, Urine 56.16 mg/dL (47-110)
[2021-03-17] MEDS: Donepezil HCl 5 MG TAB PO SCH (21:30)
[2021-03-18] MEDS ORDERED: Furosemide 40 MG/4 ML VIAL SLOW IVP SCH (06:00)
[2021-03-18 06:03] LABS: #Basophils 0.1 thou/uL (0.0-0.2); #Eosinphils 0.1 thou/uL (0.0-0.7); #Monocytes 1.3 thou/uL (0.11-0.59); #Neutrophils 7.2 thou/uL (1.40-6.50); %Basophils 0.5 % (0.0-1.0); %Eosinophils 0.7 % (0.0-10.0); %Lymphocytes 25.9 % (21.0-51.0); %Monocytes 11.3 % (0.0-10.0); %Neutrophils 61.5 % (42.0-75.0); Hemoglobin 9.8 g/dL (12.0-16.0); Mean Corpuscular HGB CONC 31.3 g/dL (32.0-36.0); Mean Corpuscular Hemoglobin 31.2 pg (27.0-31.0); Mean Corpuscular Volume 99.5 fL (78.0-98.0); Mean Platelet Volume 8.9 fL (7.4-10.4); Platelet Count 337 thou/uL (130-400); RBC Distribution Width 15.2 % (11.5-14.5); Red Blood Cell (RBC) Count 3.14 mill/uL (4.20-5.40); White Blood Cell (WBC) Count 11.6 thou/uL (4.8-10.8)
[2021-03-18 06:24] LABS: Anion Gap 12 mmol/L (10-20); BUN (Urea Nitrogen) 25 mg/dL (9.8-20.1); Calc. Creatinine Clearance 14 mL/min (70-130); Calcium 7.8 mg/dL (7.8-10.44); Carbon Dioxide 28 mmol/L (23-31); Chloride 104 mmol/L (98-107); Glucose 83 mg/dL (83-110); Potassium 3.7 mmol/L (3.5-5.1); Sodium 140 mmol/L (136-145)
[2021-03-18] MEDS: Levothyroxine Sodium 125 MCG TAB PO SCH (06:53)
[2021-03-18] MEDS ORDERED: predniSONE 20 MG TAB PO SCH (08:00)
[2021-03-18] MEDS: Aspirin Chewable 81 MG TAB PO SCH (08:39)
[2021-03-18] MEDS: Divalproex Sodium 125 mg Sprinkle Capsule PO SCH ×2 (08:39→22:17)
[2021-03-18] MEDS: Heparin 5,000 UNITS/ML VIAL SC SCH ×3 (08:40→22:16)
[2021-03-18 14:26] LABS: Complement-C4 17.9 mg/dL (15-57)
[2021-03-18 14:43] LABS: Hep C IgG Ab Non-Reactive (NonReactive); Hep C Index 0.14 S/CO (0-0.79)
[2021-03-18] MEDS: Furosemide 40 MG TAB PO SCH (17:36)
[2021-03-18] MEDS ORDERED: diphenhydrAMINE 12.5 MG/5 ML UDCUP PO SCH (21:15)
[2021-03-18] MEDS ORDERED: Lorazepam 2 MG/ML VIAL SLOW IVP PRN (22:12)
[2021-03-18] MEDS: Donepezil HCl 5 MG TAB PO SCH (22:17)
[2021-03-19] MEDS: Levothyroxine Sodium 125 MCG TAB PO SCH (05:03)
[2021-03-19] MEDS ORDERED: predniSONE 5 MG TAB PO SCH (08:00)
[2021-03-19] MEDS: Aspirin Chewable 81 MG TAB PO SCH (08:47)
[2021-03-19] MEDS: Divalproex Sodium 125 mg Sprinkle Capsule PO SCH (08:47)
[2021-03-19] MEDS: Furosemide 40 MG TAB PO SCH (08:47)
[2021-03-19] MEDS: Heparin 5,000 UNITS/ML VIAL SC SCH (08:47)
[2021-03-19] MEDS ORDERED: FLU VACC QS2021-22(65YR UP)/PF 240 MCG/0.7 ML SYRINGE IM ONE (09:00)
[2021-03-19 10:21] LABS: Anion Gap 9 mmol/L (10-20); BUN (Urea Nitrogen) 26 mg/dL (9.8-20.1); Calc. Creatinine Clearance 28 mL/min (70-130); Calcium 7.9 mg/dL (7.8-10.44); Carbon Dioxide 35 mmol/L (23-31); Chloride 101 mmol/L (98-107); Glucose 69 mg/dL (83-110); Potassium 3.2 mmol/L (3.5-5.1); Sodium 142 mmol/L (136-145)
[2021-03-19 12:22] VITALS: BP 106/52; TEMP 97.7
[2021-03-19 13:34] LABS: ANA Symphony (Qualitative) Equivocal: See Note (Negative); ANA Symphony (Quantitative) 0.8 Ratio (< 0.7 Negative); dsDNA IgG Antibody 2.1 IU/mL (<10 Negative)
[2021-03-19 21:13] LABS: A/G Ratio 0.6 (0.7-1.7); Albumin 1.8 g/dL (2.9-4.4); Alpha 1 0.3 g/dL (0.0-0.4); Alpha 2 0.7 g/dL (0.4-1.0); Beta 0.9 g/dL (0.7-1.3); Gamma 1.1 g/dL (0.4-1.8); M-Spike Not Observed g/dL (Not Observed)
[2021-03-19 21:13] LABS: Albumin-Ur 48.9 % (.); Alpha 1 - Ur 7.9 % (.); Beta-Ur 13.6 % (.); Gamma-Ur 21.7 % (.); M-Spike,% Not Observed % (Not Observed); Protein, Urine 527.4 mg/dL (Not Estab.)
[2021-03-20 08:39] LABS: Hep B Surface AG-Rflx Sendout Negative (Negative); Hepatitis B Core Total Negative (Negative); Hepatitis B Surface AB-Sendout Non Reactive (.)
[2021-03-20 12:57] LABS: EliA Vaculitis New Method **** NEW METHOD ****; Glomerular Basemt Membrane Ab 2.3 EliAU/mL (<7 Negative)
== END 2021-03-19 12:28 | DRG 280 ==
LOC: ERS 00:01 → ERHOLD 02:53 → NEURO 08:48 → 2NO 03-19 11:38 → NEURO 03-19 11:48
PROVIDERS: ADMIT Internal Medicine; ATTEND Internal Medicine
DX: I13.0 Hypertensive heart and chronic kidney disease with heart failure and stage 1 through stage 4 chronic kidney disease, or unspecified chronic kidney disease (principal); L89.153 Pressure ulcer of sacral region, stage 3; I21.A1 Myocardial infarction type 2; J18.9 Pneumonia, unspecified organism; I50.33 Acute on chronic diastolic (congestive) heart failure; J44.0 Chronic obstructive pulmonary disease with (acute) lower respiratory infection; J44.1 Chronic obstructive pulmonary disease with (acute) exacerbation; F03.91 Unspecified dementia, unspecified severity, with behavioral disturbance; N17.9 Acute kidney failure, unspecified; J96.10 Chronic respiratory failure, unspecified whether with hypoxia or hypercapnia; Z20.822 Contact with and (suspected) exposure to COVID-19; K21.9 Gastro-esophageal reflux disease without esophagitis; N18.30 Chronic kidney disease, stage 3 unspecified; E66.9 Obesity, unspecified; E03.9 Hypothyroidism, unspecified; H90.3 Sensorineural hearing loss, bilateral; F32.A Depression, unspecified; E88.09 Other disorders of plasma-protein metabolism, not elsewhere classified; D63.1 Anemia in chronic kidney disease; Z88.8 Allergy status to other drugs, medicaments and biological substances; Z79.82 Long term (current) use of aspirin; Z79.890 Hormone replacement therapy; Z79.52 Long term (current) use of systemic steroids; Z79.899 Other long term (current) drug therapy; Z87.442 Personal history of urinary calculi; Z68.28 Body mass index [BMI] 28.0-28.9, adult; Z90.49 Acquired absence of other specified parts of digestive tract
CPT/HCPCS: 36415; 71045; 76770; 80048; 80053; 81003; 81015; 82553; 82570; 82595; 83516; 83880; 84156; 84165; 84166; 84484; 85025; 86038; 86160; 86225; 86256; 86704; 86705; 86706; 86707; 86803; 87040; 87340; 87350; 93005; 94640; 97139; J0692; J1200; J1644; J1940; J2060; J3370; J7512; J7620; Q0163; U0002